=== PATIENT | female | born 1965 | race Caucasian/White ===

== ENCOUNTER 2023-11-20 04:03 | Observation (INO) | payer BC, SELFPAY ==
[2023-11-19 23:23] VITALS: BP 118/86
[2023-11-19 23:33] VITALS: BP 146/53
[2023-11-19 23:39] VITALS: BMI 17.6
--- NOTE | 2023-11-19 23:59 | ED.GENMED ---
History of Present Illness
<RACHAEL Briceno - Last Filed: 11/20/23 00:09>
General
Chief Complaint: Fall
Source: patient and family
Exam Limitations: none
Time Seen by Provider: 11/19/23 23:41
Nursing documentation reviewed up to this point in time: agreed with
Travel History
Have you had any contact with someone who has COVID-19?: No
Do you have any symptoms of coronavirus? Fever > 100 degrees, chills, cough, shortness of breath, sore throat, loss of taste or smell, muscle aches, or headache?: No
History of Present Illness
History of Present Illness:
patient is a 58 y/o female with PMH of multiple sclerosis and emphysema presenting after a fall. Patient states the fall occurred around 10pm. Patient states she collapsed on her legs and her family found her on the floor laying on her back. Patient
denies a head strike. Patient admits to vomiting once on Saturday and once on Saturday but not since the fall. Patient admits to increased diarrhea this week. Patient admits to increased allergies in the last week which she takes Zyrtec for. Patient
denies fever, chills, BARNES, SOB, CP, dizziness, visual changes, bone pain, palpitations. Patient denies being on a blood thinner. Patient admits to two glasses of alcohol for which the family says was more than two drinks. Patient admits to smoking a
half pack of cigarettes today. Family admits that patient has had 'increased metal status change and weakness when walking' due to unsteady gate. Patient uses a walker and cane. Patient was using a walker during her fall today.
Review of Systems
<RACHAEL Briceno - Last Filed: 11/20/23 00:09>
Review of Systems
Constitutional: Reports no symptoms
EENT: Reports runny nose
Respiratory: Reports no symptoms
Cardiac: Reports no symptoms
ABD/GI: Reports nausea, vomiting and diarrhea
: Reports no symptoms
Musculoskeletal: Reports no symptoms
Skin: Reports no symptoms
Neurological: Reports no symptoms
Endocrine: Reports no symptoms
Hematologic/Lymphatic: Reports no symptoms
Psychiatric: Reports no symptoms
Phy Exam
<RACHAEL Briceno - Last Filed: 11/20/23 00:09>
General Physical Exam
General Presentation: well appearing and no apparent distress
General Skin: warm and dry
General Habitus: normal
General Mental: alert
General Hydration: appears well hydrated
ENT Exam
ENT Exam: EOMI, pharynx normal, neck supple and normocephalic
Eye Exam
Eye Exam: PERRL, cornea clear and conjunctiva normal
Scleral Findings: icteric sclera: Bilateral (mild scleral icterus )
Cardiovascular Exam
Cardiovascular Exam: regular rate/rhythm, no edema, no murmur and normal peripheral pulses
Pulmonary Exam
Pulmonary Exam: lungs clear, no respiratory distress, no rales, no crackles, no rhonchi, no stridor, no wheezing and no cough
Gastrointestinal Exam
Gastrointestinal Exam: normal bowel sounds, non tender, soft, no organomegaly, no pulsatile mass and non distended
Neurological Exam
Neurological Exam: alert, oriented x3, no motor deficits and speech normal
Musculoskeletal Exam
Musculoskeletal Exam: full ROM and no edema
Skin Exam
Skin Exam: normal color, warm/dry, no rash and no petechia
Psychiatric Exam
Psychiatric Exam: normal mood/affect
Course
<ST JanakNM - Last Filed: 11/20/23 00:09>
Orders/Labs/Results
Orders:
Orders
11/19/23 23:54
Alcohol Urgent
Ammonia Urgent
Complete Blood Count/With Diff Urgent
Comprehensive Metabolic Panel Urgent
11/19/23 23:57
Add On- LAB Urgent
Comments:: blood in lab
Tests Added?: alcohol
11/20/23 00:09
Urinalysis Reflex To Culture Urgent
Date Specimen was Collected: 11/20/23
Time Specimen was Collected: 00:07
Urine Microscopic Reflex Cult Urgent
Urine Culture Urgent
ELIA Source: U
Specimen Description:
Date Specimen was Collected: 11/20/23
Time Specimen was Collected: 00:07
11/20/23 00:30
Chest [CR Chest - 2 Views ] Urgent
Comment:
Reason For Exam: cough, congestion, hx of emphysema
11/20/23 02:00
0.9% Sodium Chloride 1000 ml [Nss] 1,000 ml Mvi, Adult [Multivitamin] 10 ml Thiamine Injection 100 mg IV 250 mls/hr
Abnormal Lab Results
11/19/23 11/20/23
23:54 00:09
MCH 33.6 H pg
(27.0-31.0)
Plt Count 96 L 10^3/uL
(130-400)
Potassium 3.0 L mmol/L
(3.5-5.1)
Creatinine 0.4 L mg/dL
(0.6-1.0)
AST 89 H U/L
(14-36)
ALT 36 H U/L
(0-35)
Urine Ketones 1+ A
(Negative)
Ur Occult Blood Reflex 3+ A
(Negative)
Urine Bilirubin 1+ A
(Negative)
Urine Urobilinogen 2+ A
(Neg - 1+)
Leukocyte Esterase Rfl 2+ A
(Negative)
Urine Bacteria (Reflex) Many A
(Negative)
Urine Albumin (Reflex) 1+ A
(Neg - Trace)
11/19/23 23:54
11/19/23 23:54
Vital Signs
Initial and Last Documented VS:
Initial Vital Signs
Pulse Resp BP Pulse Ox
90 24 118/86 91
11/19/23 23:23 11/19/23 23:23 11/19/23 23:23 11/19/23 23:23
Last Documented Vital Signs
Pulse Resp BP Pulse Ox
91 17 135/68 90
11/20/23 01:15 11/20/23 01:15 11/20/23 01:07 11/20/23 01:15
<Danny Castro, DO - Last Filed: 11/20/23 02:02>
Orders/Labs/Results
Orders:
Orders
11/19/23 23:54
Alcohol Urgent
Ammonia Urgent
Complete Blood Count/With Diff Urgent
Comprehensive Metabolic Panel Urgent
11/19/23 23:57
Add On- LAB Urgent
Comments:: blood in lab
Tests Added?: alcohol
11/20/23 00:09
Urinalysis Reflex To Culture Urgent
Date Specimen was Collected: 11/20/23
Time Specimen was Collected: 00:07
Urine Microscopic Reflex Cult Urgent
Urine Culture Urgent
ELIA Source: U
Specimen Description:
Date Specimen was Collected: 11/20/23
Time Specimen was Collected: 00:07
11/20/23 00:30
Chest [CR Chest - 2 Views ] Urgent
Comment:
Reason For Exam: cough, congestion, hx of emphysema
11/20/23 02:00
0.9% Sodium Chloride 1000 ml [Nss] 1,000 ml Mvi, Adult [Multivitamin] 10 ml Thiamine Injection 100 mg IV 250 mls/hr
Abnormal Lab Results
11/19/23 11/20/23
23:54 00:09
MCH 33.6 H pg
(27.0-31.0)
Plt Count 96 L 10^3/uL
(130-400)
Potassium 3.0 L mmol/L
(3.5-5.1)
Creatinine 0.4 L mg/dL
(0.6-1.0)
AST 89 H U/L
(14-36)
ALT 36 H U/L
(0-35)
Urine Ketones 1+ A
(Negative)
Ur Occult Blood Reflex 3+ A
(Negative)
Urine Bilirubin 1+ A
(Negative)
Urine Urobilinogen 2+ A
(Neg - 1+)
Leukocyte Esterase Rfl 2+ A
(Negative)
Urine Bacteria (Reflex) Many A
(Negative)
Urine Albumin (Reflex) 1+ A
(Neg - Trace)
11/19/23 23:54
11/19/23 23:54
Vital Signs
Initial and Last Documented VS:
Initial Vital Signs
Pulse Resp BP Pulse Ox
90 24 118/86 91
11/19/23 23:23 11/19/23 23:23 11/19/23 23:23 11/19/23 23:23
Last Documented Vital Signs
Pulse Resp BP Pulse Ox
91 17 135/68 90
11/20/23 01:15 11/20/23 01:15 11/20/23 01:07 11/20/23 01:15
<RACHAEL Briceno - Last Filed: 11/20/23 00:09>
MDM/Problems Addressed
Differential Diagnosis Includes:
fall complication
multiple sclerosis
MDM/Problems Addressed:
fall
<Danny Catsro DO - Last Filed: 11/20/23 02:02>
MDM/Problems Addressed
Differential Diagnosis Includes:
fall complication
multiple sclerosis alcohol intoxication
<RACHAEL Briceno - Last Filed: 11/20/23 00:09>
*Critical Care Note
Total Time (30-74mins, 75-104mins- exclusive of procedures): Not Applicable
<Danny Castro DO - Last Filed: 11/20/23 02:02>
*Radiology
Radiology exam reviewed: preliminary read by ED provider
*Pulse Oximetry
Patient hypoxic: no
*Critical Care Note
Total Time (30-74mins, 75-104mins- exclusive of procedures): Not Applicable
Data Reviewed
Review of Other/Old Records Reveals: Labs, Records and Radiology Studies
Source: patient, spouse and family
<Danny Castro DO - Last Filed: 11/20/23 02:02>
Patient Management
Social determinants of health affecting care: Living situation, Substance abuse (Heavy alcohol abuse) and Strong social support
ED Attending Note
<RACHAEL Briceno - Last Filed: 11/20/23 00:09>
-
Portions of this chart may have been created with voice recognition software.� Occasional wrong word or��sound alike� substitutions may have occurred due to the inherent limitations of voice recognition software.
<Danny Castro DO - Last Filed: 11/20/23 02:02>
ED Attending Note
Patient seen and examined by attending physician: Yes
I performed the substantive portion of visit, reviewed & personally made and approve the management plan that is documented in note by myself or IBRAHIMA.: Yes
ED Attending Note:
This a pleasant 58-year-old female presents with weakness after a fall. She does have a history of multiple sclerosis and emphysema. Around 10 PM this evening she states that her legs gave out and her family found her on the floor. Patient
reports not having a head strike. Patient has had increased diarrhea throughout the week. Patient is a smoker and drinks alcohol heavily. She has had an unsteady gait. She does use a walker and a cane but sometimes is noncompliant. Patient was
using a walker today. She is accompanied by her significant other and daughter. Patient was seen in conjunction with the PA student. I have reviewed and agree with the history and treatment plan presented. On my independent physical exam,
patient is awake, alert, and oriented x3. Skin is warm and dry. Lungs have generalized wheezing present. Heart is regular rate and rhythm.
Discharge Plan
Departure
Patient Disposition: Admit
Date of Disposition: 11/20/23
Time of Disposition: 02:01
Admit to: Telemetry
Admit to doctor: Hospitalist
Presentation/result/management discussed w/ accepting MD/DO: Hospitalist
Condition: Fair
Discharge Problem:
Weakness, Alcohol intoxication, Falls frequently, Acute hypokalemia
Prescriptions:
No Action
multivitamin Tablet
1 tab PO DAILY
cetirizine [Zyrtec] 10 mg Tablet
10 mg PO DAILY
glatiramer 40 mg/mL Syringe
40 mg SC MOWEFR
Referrals:
Ronald Carmen I., DO [Family Provider] -
Interventions
Interventions:
*Risk Screen - Suicide Last Done: 11/19/23 23:23
*General Assessment Last Done: 11/19/23 23:42
*Neglect/Abuse Screening Last Done: 11/19/23 23:23
ED- Fall Risk Assessment Last Done: 11/20/23 01:00
*ED COVID-19 Vaccine History Last Done: 11/19/23 23:42
ED- Cardiac Assessment Last Done: 11/20/23 01:00
ED-Musculoskeletal Assessment Last Done: 11/20/23 01:00
ED- Neurological Assessment Last Done: 11/20/23 01:00
ED- Pulmonary Assessment Last Done: 11/20/23 01:00
ED-Skin Assessment Last Done: 11/20/23 01:00
Discharge Date and Time
Print Language: KOREAN
[2023-11-20] VITALS (15 sets, daily range): BP systolic 109–168; BP diastolic 56–118; PULSE 85
[2023-11-20 00:03] LABS: % Basophils 0.4 % (0-2); % Eosinophils 0.3 % (0-6); % Immature Granulocytes 0.4 % (0-0.5); % Monocytes 7.4 % (1.7-9.3); % Neutrophils 67.5 % (42.2-75.2); Absolute Lymphocytes 1.8 10^3/uL (1.2-3.4); Absolute Monocytes 0.6 10^3/uL (0.1-0.6); Absolute Neutrophils 5.2 10^3/uL (1.4-6.5); Hematocrit 40.8 % (37.0-47.0); Hemoglobin 14.6 g/dL (12.0-16.0); Mean Corp Hgb Conc. 35.8 g/dL (33.0-37.0); Mean Corpuscular Hgb 33.6 pg (27.0-31.0); Mean Corpuscular Volume 93.8 fL (81.0-99.0); Nucleated Red Blood Cells % 0 %; Red Blood Cell Count 4.35 10^6/uL (4.20-5.40); Red Cell Dist. Width 12.7 % (11.5-14.5); White Blood Cell Count 7.7 10^3/uL (4.8-10.8)
[2023-11-20 00:14] LABS: Ammonia 16 umol/L (9-30)
[2023-11-20 00:15] LABS: ALT (SGPT) 36 U/L (0-35); AST (SGOT) 89 U/L (14-36); Albumin 4.2 g/dl (3.5-5.0); Alkaline Phosphatase 125 U/L (38-126); Blood Urea Nitrogen 12 mg/dl (7-17); Calcium 8.8 mg/dl (8.4-10.2); Carbon Dioxide 25 mmol/L (22-30); Chloride 100 mmol/L (98-107); Estimated Creatinine Clearance 79 ml/min; Glucose 87 mg/dl (70-99); Sodium 138 mmol/L (135-145); Total Protein 7.1 g/dl (6.3-8.2); eGFR > 60.00
[2023-11-20 00:25] LABS: Urine Albumin 1+ (Neg - Trace); Urine Bilirubin 1+ (Negative); Urine Color Amber; Urine Glucose Negative (Negative); Urine Ketone 1+ (Negative); Urine Leukocyte 2+ (Negative); Urine Nitrite Negative (Negative); Urine Occult Blood 3+ (Negative); Urine Urobilinogen 2+ (Neg - 1+)
[2023-11-20 00:26] LABS: Urine Character Cloudy (Clear)
[2023-11-20 00:32] LABS: Alcohol 375 mg/dl
[2023-11-20 00:49] LABS: Platelet Count 96 10^3/uL (130-400)
[2023-11-20 00:50] LABS: Mean Platelet Volume 10.4 fL (7.4-10.4)
[2023-11-20 01:09] LABS: Urine Triple Phosphate Crystal Seen
[2023-11-20 01:10] LABS: Urine Bacteria Many (Negative); Urine Squamous Cell >30 /LPF (Few)
[2023-11-20 01:11] LABS: Urine Amorphous Seen; Urine Mucus Many
[2023-11-20] MEDS: MULTIVITAMIN 1011 MG IV (03:04)
[2023-11-20] MEDS: MULTIVITAMIN 1011 ML IV (03:04)
--- NOTE | 2023-11-20 03:04 | HPS.HSE ---
Addendum entered and electronically signed by Chema Cobos MD 11/20/23 03:36:
Correction;
Level of care: Obs <del>MS</del> TLM
Original Note:
Family Physician
-
Family Physician: Ronald Carmen
Chief Complaint
-
fall , weakness , unsteady gait
History of Present Illness
58F pw fall and unsteady gait
Significant PMHx of ETOH use disorder, Multple sclerosis , chronic gait dysfunction require walker , current smoker, COPD/ emphysema,
Seen at ER for evaluation of Fall and unsteady gait
Per patient:
she collapse due to leg weakness. Denied head strike. Not on blood thinner.
he was found on the brayden by family.
Per family she was drinking more than she reports.
ETOH level is 75 on arrival
patient reports non billous vomiting once on Suday and also loose BM.
Per Family:
The patient has had 'increased metal status change and weakness when walking' due to unsteady gate.
ROS
Denies fever, chills, BARNES, SOB, CP, dizziness, visual changes, bone pain, palpitations
Medical History
Past Medical History
Past Medical History: Reports Other
Additional Past Medical History:
ETOH use disorder
Multiple sclerosis
chronic gait dysfunction require walker
Current smoker
COPD/ emphysema,
Past Surgical History: Reports Other
Social History
Tobacco: Smoker
Alcohol: Daily
Family History
Family History: Not pertinent
Allergies / Home Medications
Allergies reflects when Allergies were last updated in [employer].
Home Medications with original date entered in [employer]
Allergy/Medication List:
Allergies
Allergy/AdvReac Type Severity Reaction Status Date / Time
No Known Allergies Allergy Verified 11/19/23 23:26
Home Medications
cetirizine 10 mg tablet (Zyrtec) 10 mg PO DAILY 11/19/23
glatiramer 40 mg/mL subcutaneous syringe 40 mg SC MOWEFR 11/19/23
multivitamin 1 tab PO DAILY 11/19/23
Review of Systems
-
Constitutional: Reports No Symptoms
EENT: Reports No Symptoms
Respiratory: Reports No Symptoms
Cardiac: Reports No Symptoms
Abdomen/GI: Reports Nausea, Vomiting and Diarrhea
: Reports No Symptoms
Musculoskeletal: Reports No Symptoms
Skin: Reports No Symptoms
Neurological: Reports Weakness
Endocrine: Reports No Symptoms
Hematologic/Lymphatic: Reports No Symptoms
Psych: Reports No Symptoms
Physical Exam
Vital Signs
Vital Signs
Temp Pulse Resp BP Pulse Ox
98.0 F 94 16 145/70 92
11/20/23 02:05 11/20/23 02:05 11/20/23 02:05 11/20/23 02:05 11/20/23 02:05
Physical Exam
General: No Apparent Distress
HEENT: NormoCephalic, Anicteric and Moist mucous membranes
Respiratory: Clear
Cardiac: S1/S2 and Regular Rhythm
Breast: Deferred by me
GI: Soft, Non Tender, Non Distended and Normal Bowel Sounds
Rectal: Deferred by Provider
Genito-urinary: Deferred by me
Musculoskeletal: No Edema
Skin: Warm and Dry
Neuro: AO x 3
Psych: Calm
Laboratory Results
-
11/19/23 23:54
11/19/23 23:54
Laboratory Results
Total Bilirubin 1.0 mg/dl (0.2-1.3) 11/19/23 23:54
AST 89 U/L (14-36) H 11/19/23 23:54
ALT 36 U/L (0-35) H 11/19/23 23:54
Alkaline Phosphatase 125 U/L (38-126) 11/19/23 23:54
Data Reviewed
-
Diagnostic Radiology: Image Personally Visualized and interpreted
Lab Data: Labs Reviewed by me
Impression/Plan
-
Reviewed VS: afebrile HR 90 -100s RR 16 POx 88- low 90s on RA
Data
nl CBC
K 3
nl Cr
AST 89
ALT 36
UA not remarkable for UTI
CXR seem chronic emphysematous/COPD changes with flattening of dipharagm hages in my view
ETOH 375
ASSESSMENT & PLAN
Fall likely due to acute ETOH intoxication with underlying chronic gait dysfunction & non compliance with walker
Hypokalemia due to vomiting and diarrheal GI loss +/_ starvation ketosis
Recent vomiting and diarrhea suspected acute viral GE
Spontaneously resolved diarrhea
- KCL PO 40 x1 at ER
- IVF after Banana bag intiaited by ER
- fall precaution
- PT/OT
HX Multiple sclerosis
chronic gait dysfunction & non compliance with walker
P Neurologist; Dr Sainz
- stable
- on Glatiramer 40 mg SC on MWF
HX ETOH use disorder
Denied prior HX severe ETOH WD syndrome
- Given ETOH level of 375, too soon for acute ETOH WDS
- CIWA protocol
Marginal hypoxia due to emphysema/ COPD
Current smoker
No gross PNA or CHF on CXR by my view
- O2@ as needed if POx < 89
DVT Px: LMWH
Code: Full
Obs MS
[2023-11-20] MEDS: KCL ELIXIR 40 MEQ PO (03:09)
[2023-11-20 07:01] LABS: Blood Urea Nitrogen 7 mg/dl (7-17); Calcium 8.2 mg/dl (8.4-10.2); Carbon Dioxide 24 mmol/L (22-30); Chloride 103 mmol/L (98-107); Estimated Creatinine Clearance 79 ml/min; GGTP 107 U/L (12-43); Glucose 80 mg/dl (70-99); Hematocrit 37.4 % (37.0-47.0); Hemoglobin 13.3 g/dL (12.0-16.0); Magnesium 1.6 mg/dl (1.6-2.3); Mean Corp Hgb Conc. 35.6 g/dL (33.0-37.0); Mean Corpuscular Volume 95.7 fL (81.0-99.0); Mean Platelet Volume 10.9 fL (7.4-10.4); Platelet Count 84 10^3/uL (130-400); Potassium 3.5 mmol/L (3.5-5.1); Red Blood Cell Count 3.91 10^6/uL (4.20-5.40); Red Cell Dist. Width 12.9 % (11.5-14.5); Sodium 136 mmol/L (135-145); White Blood Cell Count 6.4 10^3/uL (4.8-10.8); eGFR > 60.00
[2023-11-20 07:07] LABS: B-Hydroxybutyrate 1.56 mmol/L (0.02-0.27)
[2023-11-20] MEDS: FOLVITE 1 MG PO (07:29)
[2023-11-20 07:30] LABS: TSH 0.38 uIU/ml (0.47-4.68)
[2023-11-20] MEDS: NSS 1000 IV (07:30)
[2023-11-20] MEDS: THIAMINE INJECTION 200 MG IV (07:30)
[2023-11-20] MEDS: APRESOLINE 10 MG IV (12:29)
--- NOTE | 2023-11-20 13:18 | CM ---
Patient seen at bedside. Patient states that she lives with her in a 2 story home. Patient PCP is Dr. Delatorre and she uses the [facility] specialty pharmacy or the [facility] in [place]. Patient has not had any VN or past SNF needs. CM provided
OBS form patient reviewed and to sign after review with her . Consult for drug and alcohol patient uncertain if she needs any resources. CM will continue to follow for discharge planning needs.
Plan; home with VN vs home with no needs/ watch for request for [facility]
--- NOTE | 2023-11-20 13:59 | W.PN.UPDATE ---
Update Note
Progress Note Update
Repeat BMP showing normal potassium level
Patient requesting to be discharged
Physical therapy evaluated patient, patient will get around with walker which is patient's baseline
Provided 1 dose of IV hydralazine for systolic blood pressure 160
Stop further IV fluid
Discussed with patient need of alcohol abstinence as patient have multiple sclerosis will aggravate weakness and fall problem.
discussed with case management as patient would require resources for alcohol rehab.
Patient to be discharged home
--- NOTE | 2023-11-22 07:29 | W.DCSUMMARY ---
Discharge Summary
Discharge Data
Date of Admission: 11/20/23
Date of Discharge: 11/20/23
-
Pending Results: No
Hospital Course
Discharging Physician : Dr Ciaran Spicer
Disposition : Home
Primary care physician : Dr Ronald Carmen
Principal Discharge diagnosis :
Generalized weakness and fall
Alcohol intoxication
Chronic Discharge diagnosis :
History of multiple sclerosis
Alcohol use disorder
Chronic obstructive pulmonary disease
Tobacco use disorder
Hospital Course :
Patient is a 58-year-old female with above-mentioned past medical history came to ER after having a mechanical fall at home. Patient had complaint of leg weakness without any loss of consciousness. Patient with history of multiple sclerosis and on
glatiramer therapy. Patient drug level of 375 in ER and was felt to causing patient to fall due to alcohol intoxication. Patient had minor hypokalemia which was replaced. Following day patient was evaluated by physical therapy and was appropriate
for home with home health care. Discussed with patient that patient needs to follow strict alcohol abstinence at this will have more difficulty with strength weakness of continue to drink alcohol. Patient understands this and outpatient resources
for help with alcohol use disorder has been provided to patient.
Important imaging findings :
None
Procedure findings :
None
Discharge Plan
-
Patient Disposition: Home (Routine Discharge)
Discharge Diagnosis/Procedures: Multiple sclerosis and fall, alcohol use disorder
Condition: Fair
Diet: Regular
Activity: As tolerated
Driving Restrictions: No driving
Bathing Restrictions: OK to Shower
Activity Restrictions/Additional Instructions:
Need to follow strict alcohol abstinence, You will have increased risk of fall and fall related problems due to ongoing alcohol use.
Referrals:
Ronald Carmen I., DO [Family Provider] - in one week
Prescriptions:
Continued
multivitamin Tablet
1 tab PO HS
cetirizine [Zyrtec] 10 mg Tablet
10 mg PO DAILY PRN (Reason: allergies)
glatiramer 40 mg/mL Syringe
40 mg SC MOWEFR@2200
loperamide 2 mg Capsule
2 mg PO DAILYPRN PRN (Reason: diarrhea)
cholecalciferol (vitamin D3) 50 mcg (2,000 unit) Tablet
50 mcg PO HS
Discharge Orders:
Discharge Patient (As Directed); Ordered 11/20/23
Ordered By: Ciaran Spicer
Discharge Date and Time
Discharge Date/Time: 11/20/23 13:01
Print Language: INDONESIAN
== END 2023-11-20 13:01 | disposition home or self-care (01) ==
LOC: ED 04:03
PROVIDERS: ADMITTING PHYSICIAN Internal Medicine; ATTENDING PHYSICIAN Hospitalist; EMERGENCY PHYSICIAN Student in an Organized Health Care Education/Training Program; FAMILY PHYSICIAN Internal Medicine
DX: R53.1 Weakness (principal); R11.2 Nausea with vomiting, unspecified; G35 Multiple sclerosis; J43.9 Emphysema, unspecified; R19.7 Diarrhea, unspecified; F17.210 Nicotine dependence, cigarettes, uncomplicated; R09.02 Hypoxemia; R29.6 Repeated falls; E87.6 Hypokalemia; F10.129 Alcohol abuse with intoxication, unspecified; R09.81 Nasal congestion; W01.0XXA Fall on same level from slipping, tripping and stumbling without subsequent striking against object, initial encounter; Y93.9 Activity, unspecified; Y92.9 Unspecified place or not applicable; Y90.8 Blood alcohol level of 240 mg/100 ml or more; Z91.199 Patient's noncompliance with other medical treatment and regimen due to unspecified reason
CPT/HCPCS: 71046; 80048; 80053; 81003; 81015; 82010; 82077; 82140; 82977; 83735; 84443; 85025; 85027; 87086; 97162; 99285; G0378

== ENCOUNTER 2023-11-25 07:32 | Emergency (ER) | payer BC, SELFPAY ==
[2023-11-25 07:34] VITALS: BP 138/104
[2023-11-25 07:57] VITALS: BMI 17.6
[2023-11-25 08:00] VITALS: BP 161/77
[2023-11-25 08:14] LABS: % Basophils 0.3 % (0-2); % Eosinophils 0.7 % (0-6); % Immature Granulocytes 0.3 % (0-0.5); % Lymphocytes 24.5 % (20.5-51.1); % Monocytes 12.9 % (1.7-9.3); % Neutrophils 61.3 % (42.2-75.2); Absolute Eosinophils 0.1 10^3/uL (0-0.7); Absolute Lymphocytes 1.7 10^3/uL (1.2-3.4); Absolute Monocytes 0.9 10^3/uL (0.1-0.6); Absolute Neutrophils 4.3 10^3/uL (1.4-6.5); Hematocrit 41.2 % (37.0-47.0); Hemoglobin 14.5 g/dL (12.0-16.0); Mean Corp Hgb Conc. 35.2 g/dL (33.0-37.0); Mean Corpuscular Hgb 33.6 pg (27.0-31.0); Mean Corpuscular Volume 95.4 fL (81.0-99.0); Mean Platelet Volume 11.3 fL (7.4-10.4); Nucleated Red Blood Cells % 0 %; Platelet Count 141 10^3/uL (130-400); Red Blood Cell Count 4.32 10^6/uL (4.20-5.40); Red Cell Dist. Width 11.9 % (11.5-14.5); White Blood Cell Count 7.1 10^3/uL (4.8-10.8)
[2023-11-25 08:17] LABS: Urine Albumin Trace (Neg - Trace); Urine Bilirubin 1+ (Negative); Urine Character Clear (Clear); Urine Color Yellow; Urine Glucose Negative (Negative); Urine Ketone Negative (Negative); Urine Leukocyte 2+ (Negative); Urine Nitrite Positive (Negative); Urine Occult Blood 2+ (Negative); Urine Specific Gravity 1.005 (<1.030); Urine Urobilinogen 3+ (Neg - 1+)
[2023-11-25 08:29] LABS: ALT (SGPT) 30 U/L (0-35); AST (SGOT) 46 U/L (14-36); Albumin 4.2 g/dl (3.5-5.0); Alkaline Phosphatase 95 U/L (38-126); Blood Urea Nitrogen 5 mg/dl (7-17); Calcium 9.3 mg/dl (8.4-10.2); Carbon Dioxide 29 mmol/L (22-30); Chloride 96 mmol/L (98-107); Estimated Creatinine Clearance 79 ml/min; Glucose 117 mg/dl (70-99); Lipase 91 U/L (23-300); Potassium 3.1 mmol/L (3.5-5.1); Sodium 133 mmol/L (135-145); Total Bilirubin 1.4 mg/dl (0.2-1.3); Total Protein 7.2 g/dl (6.3-8.2); eGFR > 60.00
[2023-11-25 08:31] LABS: Alcohol None Detected
[2023-11-25 08:39] LABS: Urine Bacteria Many (Negative); Urine Red Blood Cell 0-2 /HPF (0-2)
[2023-11-25 09:00] VITALS: BP 151/96
[2023-11-25] MEDS: NSS 500 IV (09:05)
[2023-11-25 09:14] LABS: Magnesium 1.3 mg/dl (1.6-2.3)
[2023-11-25 09:33] LABS: Ammonia < 9 umol/L (9-30)
--- NOTE | 2023-11-25 09:43 | ED.GENMED ---
History of Present Illness
General
Chief Complaint: Change in Mental Status
Source: patient
Exam Limitations: none
Time Seen by Provider: 11/25/23 08:04
Nursing documentation reviewed up to this point in time: agreed with
Travel History
Have you had any contact with someone who has COVID-19?: No
Do you have any symptoms of coronavirus? Fever > 100 degrees, chills, cough, shortness of breath, sore throat, loss of taste or smell, muscle aches, or headache?: No
History of Present Illness
History of Present Illness:
Patient with history of multiple sclerosis, currently on maintenance therapy, discharged from the hospital 3 days ago, after she was treated for acute hypokalemia along with alcohol intoxication, presents to ED secondary to continual/worsening
'confusion' since being discharged home. Denies fever or chills. Denies headache. Denies dizziness. Denies nausea, vomiting, or diarrhea. Denies drinking alcohol. Denies coughing. Denies rash. Denies blurred vision. Denies loss of sensation
or weakness. Patient states that she had some confusion when she left the hospital, but has gotten worse since she has been home.
Review of Systems
Review of Systems
Allergies reviewed?: Yes
All Other Systems: ROS reviewed and negative except as documented in HPI and ROS
Constitutional: Reports no symptoms; Denies fever or chills
EENT: Reports no symptoms
Respiratory: Reports no symptoms
Cardiac: Reports no symptoms
ABD/GI: Reports no symptoms
: Reports no symptoms
Musculoskeletal: Reports no symptoms
Skin: Reports no symptoms
Neurological: Reports other (confusion)
Phy Exam
Physical Exam
Physical Exam:
Physical Exam
General: no apparent distress, not acutely ill. afebrile
Head: nc/at. eomi
Neck: supple. no meningeal signs.
Heart: s1/s2 regular rate and rhythm, no murmur. equal radial pulses.
Lungs: no acute respiratory distress. clear bilaterally
Abdomen: normal bowel sounds. not tender.
Neuro: alert and oriented. no focal neurological deficits
Skin: no rash
Psychiatric: well kept. interactive and cooperative
Extremities: no edema. no calf tenderness.
Course
Orders/Labs/Results
Orders:
Orders
11/25/23 08:05
Alcohol Urgent
CMP [Comprehensive Metabolic Panel] Urgent
Complete Blood Count/With Diff Urgent
Lipase Urgent
Magnesium Urgent
Comment: MAG ADDED ON BY FLOOR 8:50AM 11-25-23
Urinalysis Reflex To Culture Urgent
Date Specimen was Collected: 11/25/23
Time Specimen was Collected: 07:45
Urine Microscopic Reflex Cult Urgent
Urine Culture Urgent
ELIA Source: U
Specimen Description:
Date Specimen was Collected: 11/25/23
Time Specimen was Collected: 07:45
11/25/23 08:53
Add On- LAB Urgent
Tests Added?: magnesium
0.9% Sodium Chloride 500 ml [Nss] 500 ml IV BOLUS
11/25/23 09:13
Ammonia Urgent
11/25/23 09:26
Cetirizine HCl [Zyrtec] 10 mg PO NOW STA
11/25/23 09:33
Potassium Chloride [KCl] 40 meq PO NOW STA
11/25/23 09:35
CefTRIAXone [Rocephin] 1,000 mg IV NOW STA
11/25/23 09:40
Thiamine Injection 100 mg IV NOW STA
11/25/23 09:58
Magnesium Sulfate 1 grams 0.9% Sodium Chloride 100 ml [Nss] 100 ml IV NOW
Abnormal Lab Results
11/25/23 11/25/23
08:05 09:13
MCH 33.6 H pg
(27.0-31.0)
MPV 11.3 H fL
(7.4-10.4)
Absolute Monos (auto) 0.9 H 10^3/uL
(0.1-0.6)
Monocytes % 12.9 H %
(1.7-9.3)
Sodium 133 L mmol/L
(135-145)
Potassium 3.1 L mmol/L
(3.5-5.1)
Chloride 96 L mmol/L
(98-107)
BUN 5 L mg/dl
(7-17)
Creatinine 0.4 L mg/dL
(0.6-1.0)
Glucose 117 H mg/dl
(70-99)
Magnesium 1.3 L mg/dl
(1.6-2.3)
Total Bilirubin 1.4 H mg/dl
(0.2-1.3)
AST 46 H U/L
(14-36)
Ammonia < 9 L umol/L
(9-30)
Ur Occult Blood Reflex 2+ A
(Negative)
Urine Nitrite (Reflex) Positive A
(Negative)
Urine Bilirubin 1+ A
(Negative)
Urine Urobilinogen 3+ A
(Neg - 1+)
Leukocyte Esterase Rfl 2+ A
(Negative)
Urine WBC (Reflex) 11-15 A /HPF
(0-5)
Urine Bacteria (Reflex) Many A
(Negative)
11/25/23 08:05
11/25/23 08:05
Vital Signs
Initial and Last Documented VS:
Initial Vital Signs
Temp Pulse Resp BP Pulse Ox
98.2 F 98 18 138/104 97
11/25/23 07:34 11/25/23 07:34 11/25/23 07:34 11/25/23 07:34 11/25/23 07:34
Last Documented Vital Signs
Temp Pulse Resp BP Pulse Ox
98.2 F 78 25 126/73 96
11/25/23 07:34 11/25/23 11:30 11/25/23 11:30 11/25/23 11:00 11/25/23 10:00
MDM/Problems Addressed
MDM/Problems Addressed:
Blood work reviewed and discussed with patient, including hyponatremia and hypokalemia, likely secondary to dehydration along with nutritional deficiency. In addition, urinalysis noted and discussed with patient. IV fluids given along with
electrolyte repletion, as well as IV antibiotics. Patient reports improvement after treatment. Patient otherwise is afebrile, hemodynamically stable, and neurologically intact, at time of discharge, to the care of her family.
Patient will be started on Omnicef as an outpatient, along with recommendation to continue hydration as well as dietary supplementation along with [id number] vitamin tablets. Advised PCP follow-up next week, along with repeat blood work.
Advised to return to ED with worsening symptoms.
*Critical Care Note
Total Time (30-74mins, 75-104mins- exclusive of procedures): Not Applicable
ED Attending Note
-
Portions of this chart may have been created with voice recognition software.� Occasional wrong word or��sound alike� substitutions may have occurred due to the inherent limitations of voice recognition software.
Discharge Plan
Departure
Patient Disposition: Home (Routine Discharge)
Date of Disposition: 11/25/23
Time of Disposition: 12:15
Patient with high blood pressure during this ER visit?: Yes
Condition: Good
Discharge Problem:
Acute hypokalemia, Dehydration, UTI (urinary tract infection)
Instructions: Hypokalemia (DC), Urinary Tract Infection, Adult (DC), High Potassium Diet
Prescriptions:
New
cefdinir 300 mg capsule
300 mg PO BID Qty: 12 0RF
No Action
multivitamin Tablet
1 tab PO QPM
cetirizine [Zyrtec] 10 mg Tablet
10 mg PO DAILY
glatiramer 40 mg/mL Syringe
40 mg SC MOWEFR@2200
[facility] Comments:
[facility]
loperamide 2 mg Capsule
2 mg PO DAILYPRN PRN (Reason: diarrhea)
cholecalciferol (vitamin D3) 50 mcg (2,000 unit) Tablet
50 mcg PO QPM
Referrals:
Danny Cha CRNP [Family Provider] -
Activity Restrictions/Additional Instructions:
As discussed, please follow-up with your primary care physician next week for reevaluation, including repeat blood work. Your prescription has been sent electronically to [facility] in [place].
Interventions
Interventions:
*Risk Screen - Suicide Last Done: 11/25/23 07:57
*General Assessment Last Done: 11/25/23 07:58
*Neglect/Abuse Screening Last Done: 11/25/23 07:57
ED- Fall Risk Assessment Last Done: 11/25/23 07:59
*ED COVID-19 Vaccine History Last Done: 11/25/23 07:34
*Nursing Disposition Last Done: 11/25/23 12:30
ED- Pulmonary Assessment Last Done: 11/25/23 08:02
ED- Neurological Assessment Last Done: 11/25/23 08:01
ED- Cardiac Assessment Last Done: 11/25/23 08:02
Discharge Date and Time
Print Language: EGYPTIAN
[2023-11-25] MEDS: ZYRTEC 10 MG PO (09:46)
[2023-11-25] MEDS: KCL 40 MEQ PO (09:49)
[2023-11-25] MEDS: THIAMINE INJECTION 100 MG IV (09:53)
[2023-11-25] MEDS: ROCEPHIN 1000 MG IV (09:57)
[2023-11-25 10:00] VITALS: BP 157/87
[2023-11-25] MEDS: MAGNESIUM SULFATE 102 GRAMS IV (10:20)
[2023-11-25 11:00] VITALS: BP 126/73
== END 2023-11-25 12:30 | disposition home or self-care (01) ==
LOC: EMR 07:32
PROVIDERS: Emergency Medicine; EMERGENCY PHYSICIAN Emergency Medicine; FAMILY PHYSICIAN Nurse Practitioner Family
DX: E87.6 Hypokalemia (principal); E86.0 Dehydration; N39.0 Urinary tract infection, site not specified; G35 Multiple sclerosis
CPT/HCPCS: 99283; 96365; 96375; 80053; 81003; 81015; 82077; 82140; 83690; 83735; 85025; 87086

== ENCOUNTER → 2023-12-04 07:47 | Outpatient (REF) | payer BC, SELFPAY ==
[2023-12-04 09:34] LABS: % Basophils 0.3 % (0-2); % Eosinophils 1.4 % (0-6); % Immature Granulocytes 0.2 % (0-0.5); % Lymphocytes 32.1 % (20.5-51.1); % Monocytes 8.3 % (1.7-9.3); % Neutrophils 57.7 % (42.2-75.2); Absolute Eosinophils 0.1 10^3/uL (0-0.7); Absolute Lymphocytes 1.9 10^3/uL (1.2-3.4); Absolute Monocytes 0.5 10^3/uL (0.1-0.6); Absolute Neutrophils 3.4 10^3/uL (1.4-6.5); Hematocrit 39.6 % (37.0-47.0); Mean Corp Hgb Conc. 32.8 g/dL (33.0-37.0); Mean Corpuscular Hgb 33.7 pg (27.0-31.0); Mean Corpuscular Volume 102.6 fL (81.0-99.0); Mean Platelet Volume 10.4 fL (7.4-10.4); Nucleated Red Blood Cells % 0 %; Platelet Count 332 10^3/uL (130-400); Red Blood Cell Count 3.86 10^6/uL (4.20-5.40); Red Cell Dist. Width 12.1 % (11.5-14.5); White Blood Cell Count 5.9 10^3/uL (4.8-10.8)
[2023-12-04 10:12] LABS: ALT (SGPT) 19 U/L (0-35); AST (SGOT) 25 U/L (14-36); Alkaline Phosphatase 79 U/L (38-126); Blood Urea Nitrogen 8 mg/dl (7-17); Calcium 9.7 mg/dl (8.4-10.2); Carbon Dioxide 28 mmol/L (22-30); Chloride 104 mmol/L (98-107); Glucose 99 mg/dl (70-99); Sodium 137 mmol/L (135-145); Total Bilirubin 0.5 mg/dl (0.2-1.3); Total Protein 6.7 g/dl (6.3-8.2); eGFR > 60.00
== END ==
LOC: REG 07:47
PROVIDERS: ATTENDING PHYSICIAN Nurse Practitioner Family
DX: G35 Multiple sclerosis (principal); E87.6 Hypokalemia
CPT/HCPCS: 36415; 80053; 85025

== ENCOUNTER 2023-12-28 10:30 | Emergency (ER) | payer BC, SELFPAY ==
[2023-12-28 10:48] VITALS: BP 117/60
--- NOTE | 2023-12-28 11:39 | ED.GENMED ---
History of Present Illness
General
Chief Complaint: Change in Mental Status
Source: patient
Time Seen by Provider: 12/28/23 11:21
Travel History
Have you had any contact with someone who has COVID-19?: No
Do you have any symptoms of coronavirus? Fever > 100 degrees, chills, cough, shortness of breath, sore throat, loss of taste or smell, muscle aches, or headache?: No
History of Present Illness
History of Present Illness:
58-year-old female presents to the emergency room for evaluation of 'not being herself today'. 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 The nurses felt like she was just not herself today. Patient admits to feeling fatigue
and having difficulty concentrating. She denies any fever, chills, cough, dysuria or frequency. She stopped consuming alcohol about 6 weeks ago because she 'had to'. She has recently received her medical marijuana certificate and has been using
Gummies occasionally though the last time she recalls taking 1 is 2 days ago. She denies any change in her prescription medications. She does take an injection for multiple sclerosis. She feels her ability to ambulate has not changed. She
typically uses a cane or a walker. She denies any headache.
Phy Exam
Physical Exam
Physical Exam:
General: Awake, Alert, Oriented X3. Appears stated age and chronically ill
Vitals: unremarkable
Head: Atraumatic
Eyes: Pupils equal, EOMI
Throat: Airway intact, no exudates
Neck: Trachea midline
Lungs: Clear and equal b/l
Heart: Regular rate, no murmurs
Abd: Soft, Nontender, No pulsatile mass
Neuro: Cranial nerves intact, muscle strength equal bilaterally
Skin: Warm, dry, no rash
Extremities: pulses equal b/l, no edema
Course
Orders/Labs/Results
Orders:
Orders
12/28/23 11:37
0.9% Sodium Chloride 500 ml [Nss] 500 ml IV BOLUS
12/28/23 11:39
CT Head W/o Iv Contrast Urgent
Comment:
Reason For Exam: intermittent confusion
12/28/23 12:04
COVID-19 Antigen Urgent
Source: Nasal Swab
Complete Blood Count/With Diff Urgent
Comprehensive Metabolic Panel Urgent
Magnesium Urgent
TSH Reflex To Free T4 Urgent
12/28/23 15:18
Urinalysis Reflex To Culture Urgent
Date Specimen was Collected: 12/28/23
Time Specimen was Collected: 15:15
Urine Microscopic Reflex Cult Urgent
Abnormal Lab Results
12/28/23 12/28/23
12:04 15:18
RBC 3.85 L 10^6/uL
(4.20-5.40)
Hct 36.5 L %
(37.0-47.0)
MCH 32.5 H pg
(27.0-31.0)
Neutrophils % 40.6 L %
(42.2-75.2)
Lymphocytes % 52.7 H %
(20.5-51.1)
Chloride 110 H mmol/L
(98-107)
Creatinine 0.4 L mg/dL
(0.6-1.0)
Glucose 111 H mg/dl
(70-99)
Ur Occult Blood Reflex Trace A
(Negative)
Urine RBC 3-6 A /HPF
(0-2)
Urine Bacteria (Reflex) Few A
(Negative)
12/28/23 12:04
12/28/23 12:04
Vital Signs
Initial and Last Documented VS:
Initial Vital Signs
Temp Pulse Resp BP Pulse Ox
98.2 F 74 16 117/60 97
12/28/23 10:48 12/28/23 10:48 12/28/23 10:48 12/28/23 10:48 12/28/23 10:48
Last Documented Vital Signs
Temp Pulse Resp BP Pulse Ox
98.2 F 68 16 115/71 96
12/28/23 10:48 12/28/23 13:45 12/28/23 13:45 12/28/23 13:45 12/28/23 13:48
MDM/Problems Addressed
Differential Diagnosis Includes:
Electrolyte abnormality, renal failure, medication effect
MDM/Problems Addressed:
Patient was sent to the emergency room by coworkers because she just did not seem herself. She has a nonfocal neurologic exam and answers questions appropriately here. Workup is unremarkable. Patient stable for discharge and outpatient follow-up.
*Pulse Oximetry
Patient hypoxic: no
*Critical Care Note
Total Time (30-74mins, 75-104mins- exclusive of procedures): Not Applicable
ED Attending Note
-
Portions of this chart may have been created with voice recognition software.� Occasional wrong word or��sound alike� substitutions may have occurred due to the inherent limitations of voice recognition software.
Discharge Plan
Departure
Patient Disposition: Home (Routine Discharge)
Date of Disposition: 12/28/23
Time of Disposition: 15:33
Patient with high blood pressure during this ER visit?: No
Condition: Good
Discharge Problem:
Disorientation
Instructions: Altered Mental Status (DC)
Prescriptions:
No Action
multivitamin Tablet
1 tab PO QPM
cetirizine [Zyrtec] 10 mg Tablet
10 mg PO DAILY
glatiramer 40 mg/mL Syringe
40 mg SC MOWEFR@2200
[facility] Comments:
[facility]
loperamide 2 mg Capsule
2 mg PO DAILYPRN PRN (Reason: diarrhea)
cholecalciferol (vitamin D3) 50 mcg (2,000 unit) Tablet
50 mcg PO QPM
cefdinir 300 mg capsule
300 mg PO BID Qty: 12 0RF
Referrals:
Danny Cha CRNP [Family Provider] -
Interventions
Interventions:
*Risk Screen - Suicide Last Done: 12/28/23 10:48
*General Assessment Last Done: 12/28/23 10:48
*Neglect/Abuse Screening Last Done: 12/28/23 10:48
ED- Fall Risk Assessment Last Done: 12/28/23 12:15
*ED COVID-19 Vaccine History Last Done: 12/28/23 15:39
*Nursing Disposition Last Done: 12/28/23 15:39
ED- Pulmonary Assessment Last Done: 12/28/23 12:15
ED- Neurological Assessment Last Done: 12/28/23 12:15
ED- Cardiac Assessment Last Done: 12/28/23 12:15
Discharge Date and Time
Discharge Date/Time: 12/28/23 15:42
Print Language: EMIRATI
[2023-12-28 11:54] VITALS: BMI 19.2
[2023-12-28] MEDS: NSS 500 IV (12:09)
[2023-12-28 12:21] LABS: % Basophils 0.3 % (0-2); % Eosinophils 1.7 % (0-6); % Immature Granulocytes 0.2 % (0-0.5); % Lymphocytes 52.7 % (20.5-51.1); % Monocytes 4.5 % (1.7-9.3); % Neutrophils 40.6 % (42.2-75.2); Absolute Eosinophils 0.1 10^3/uL (0-0.7); Absolute Monocytes 0.3 10^3/uL (0.1-0.6); Absolute Neutrophils 2.3 10^3/uL (1.4-6.5); Hematocrit 36.5 % (37.0-47.0); Hemoglobin 12.5 g/dL (12.0-16.0); Mean Corp Hgb Conc. 34.2 g/dL (33.0-37.0); Mean Corpuscular Hgb 32.5 pg (27.0-31.0); Mean Corpuscular Volume 94.8 fL (81.0-99.0); Mean Platelet Volume 9.8 fL (7.4-10.4); Nucleated Red Blood Cells % 0 %; Platelet Count 211 10^3/uL (130-400); Red Blood Cell Count 3.85 10^6/uL (4.20-5.40); Red Cell Dist. Width 12.2 % (11.5-14.5); White Blood Cell Count 5.8 10^3/uL (4.8-10.8)
[2023-12-28 12:31] LABS: ALT (SGPT) 13 U/L (0-35); AST (SGOT) 21 U/L (14-36); Albumin 3.9 g/dl (3.5-5.0); Alkaline Phosphatase 84 U/L (38-126); Blood Urea Nitrogen 8 mg/dl (7-17); Calcium 9.2 mg/dl (8.4-10.2); Carbon Dioxide 27 mmol/L (22-30); Chloride 110 mmol/L (98-107); Estimated Creatinine Clearance 86 ml/min; Glucose 111 mg/dl (70-99); Magnesium 1.8 mg/dl (1.6-2.3); Potassium 3.8 mmol/L (3.5-5.1); Sodium 144 mmol/L (135-145); Total Bilirubin 0.2 mg/dl (0.2-1.3); Total Protein 6.5 g/dl (6.3-8.2); eGFR > 60.00
[2023-12-28 12:37] LABS: COVID-19 Antigen Negative (Negative)
[2023-12-28 13:45] VITALS: BP 115/71
[2023-12-28 15:24] LABS: Urine Albumin Negative (Neg - Trace); Urine Bilirubin Negative (Negative); Urine Character Clear (Clear); Urine Color Yellow; Urine Glucose Negative (Negative); Urine Ketone Negative (Negative); Urine Leukocyte Negative (Negative); Urine Nitrite Negative (Negative); Urine Occult Blood Trace (Negative); Urine Urobilinogen Negative (Neg - 1+)
[2023-12-28 15:51] LABS: Urine Bacteria Few (Negative); Urine White Cell 0-2 /HPF (0-5)
== END 2023-12-28 15:42 | disposition home or self-care (01) ==
LOC: EMR 10:30
PROVIDERS: EMERGENCY PHYSICIAN Emergency Medicine; FAMILY PHYSICIAN Nurse Practitioner Family
DX: R41.0 Disorientation, unspecified (principal); G35 Multiple sclerosis
CPT/HCPCS: 99284; 96360; 70450; 80053; 81003; 81015; 83735; 84443; 85025; 87811

== ENCOUNTER → 2024-02-05 12:22 | Outpatient (REF) | payer BC, SELFPAY ==
[2024-02-05 13:15] LABS: % Basophils 0.4 % (0-2); % Eosinophils 1.2 % (0-6); % Immature Granulocytes 0.2 % (0-0.5); % Monocytes 7.2 % (1.7-9.3); Absolute Eosinophils 0.1 10^3/uL (0-0.7); Absolute Monocytes 0.4 10^3/uL (0.1-0.6); Absolute Neutrophils 2.6 10^3/uL (1.4-6.5); Hematocrit 39.9 % (37.0-47.0); Hemoglobin 13.4 g/dL (12.0-16.0); Mean Corp Hgb Conc. 33.6 g/dL (33.0-37.0); Mean Corpuscular Hgb 32.8 pg (27.0-31.0); Mean Corpuscular Volume 97.6 fL (81.0-99.0); Mean Platelet Volume 10.7 fL (7.4-10.4); Nucleated Red Blood Cells % 0 %; Platelet Count 178 10^3/uL (130-400); Red Blood Cell Count 4.09 10^6/uL (4.20-5.40); Red Cell Dist. Width 12.6 % (11.5-14.5)
[2024-02-05 13:54] LABS: ALT (SGPT) 11 U/L (0-35); AST (SGOT) 23 U/L (14-36); Albumin 4.7 g/dl (3.5-5.0); Alkaline Phosphatase 110 U/L (38-126); Direct Bilirubin 0.2 mg/dl (0.0-0.4); Total Bilirubin 0.8 mg/dl (0.2-1.3); Total Protein 7.3 g/dl (6.3-8.2)
[2024-02-05 14:14] LABS: Erythrocyte Sed Rate 11 mm/hour (0-20)
[2024-02-08 17:31] LABS: Varicella Zoster IgM 0.46 ISR (<=0.90)
== END ==
LOC: RCS 12:22
PROVIDERS: ATTENDING PHYSICIAN Student in an Organized Health Care Education/Training Program; FAMILY PHYSICIAN Internal Medicine
DX: G35 Multiple sclerosis (principal)
CPT/HCPCS: 36415; 80076; 85025; 85652; 86787; 93005

== ENCOUNTER → 2024-04-08 07:30 | Outpatient (REF) | payer BC, SELFPAY ==
[2024-04-08 08:18] LABS: % Basophils 0.4 % (0-2); % Immature Granulocytes 0.4 % (0-0.5); % Lymphocytes 10.6 % (20.5-51.1); % Monocytes 11.1 % (1.7-9.3); % Neutrophils 76.5 % (42.2-75.2); Absolute Eosinophils 0.1 10^3/uL (0-0.7); Absolute Lymphocytes 0.5 10^3/uL (1.2-3.4); Absolute Monocytes 0.5 10^3/uL (0.1-0.6); Absolute Neutrophils 3.7 10^3/uL (1.4-6.5); Hematocrit 58.7 % (37.0-47.0); Mean Corp Hgb Conc. 34.1 g/dL (33.0-37.0); Mean Corpuscular Hgb 33.4 pg (27.0-31.0); Mean Corpuscular Volume 98.2 fL (81.0-99.0); Mean Platelet Volume 10.9 fL (7.4-10.4); Nucleated Red Blood Cells % 0 %; Platelet Count 180 10^3/uL (130-400); Red Blood Cell Count 5.98 10^6/uL (4.20-5.40); Red Cell Dist. Width 13.5 % (11.5-14.5); White Blood Cell Count 4.8 10^3/uL (4.8-10.8)
[2024-04-08 08:30] LABS: ALT (SGPT) 13 U/L (0-35); AST (SGOT) 27 U/L (14-36); Albumin 4.5 g/dl (3.5-5.0); Alkaline Phosphatase 112 U/L (38-126); Blood Urea Nitrogen 7 mg/dl (7-17); Carbon Dioxide 25 mmol/L (22-30); Chloride 102 mmol/L (98-107); Glucose 69 mg/dl (70-99); HDL Cholesterol 62 mg/dl; LDL Cholesterol, Calculated 77 mg/dl; Potassium 3.9 mmol/L (3.5-5.1); Sodium 140 mmol/L (135-145); Total Bilirubin 0.8 mg/dl (0.2-1.3); Total Cholesterol 184 mg/dl (50-199); Total Protein 7.2 g/dl (6.3-8.2); Triglyceride 226 mg/dl (10-149); Very Low Density Lipoprotein 45 mg/dl (0-30); eGFR > 60.00
[2024-04-08 09:05] LABS: TSH Reflex To Free T4 0.85 uIU/ml (0.47-4.68)
[2024-04-10 05:18] LABS: Vitamin D 1,25 Dihydroxy 45.6 pg/mL (19.9-79.3)
== END ==
LOC: REG 07:30
PROVIDERS: ATTENDING PHYSICIAN Nurse Practitioner Adult Health
DX: E55.9 Vitamin D deficiency, unspecified (principal); Z00.00 Encounter for general adult medical examination without abnormal findings
CPT/HCPCS: 36415; 80053; 80061; 82652; 83036; 84443; 85025

== ENCOUNTER → 2024-04-11 11:05 | Outpatient (REF) | payer BC, SELFPAY ==
[2024-04-11 12:24] LABS: % Basophils 0.2 % (0-2); % Eosinophils 0.7 % (0-6); % Immature Granulocytes 0.2 % (0-0.5); % Lymphocytes 15.6 % (20.5-51.1); % Monocytes 14.4 % (1.7-9.3); % Neutrophils 68.9 % (42.2-75.2); Absolute Lymphocytes 0.7 10^3/uL (1.2-3.4); Absolute Monocytes 0.6 10^3/uL (0.1-0.6); Absolute Neutrophils 2.9 10^3/uL (1.4-6.5); Hematocrit 55.7 % (37.0-47.0); Hemoglobin 19.3 g/dL (12.0-16.0); Mean Corp Hgb Conc. 34.6 g/dL (33.0-37.0); Mean Corpuscular Hgb 33.6 pg (27.0-31.0); Mean Platelet Volume 10.4 fL (7.4-10.4); Nucleated Red Blood Cells % 0 %; Platelet Count 158 10^3/uL (130-400); Red Blood Cell Count 5.74 10^6/uL (4.20-5.40); Red Cell Dist. Width 13.6 % (11.5-14.5); White Blood Cell Count 4.2 10^3/uL (4.8-10.8)
[2024-04-11 14:35] LABS: Glycohemoglobin (HgbA1c) 4.9 % (4.0-5.6)
[2024-04-13 00:05] LABS: Erythropoietin (EPO) 16 mU/mL (4-27)
== END ==
LOC: REG 11:05
PROVIDERS: ATTENDING PHYSICIAN Nurse Practitioner Adult Health
DX: E86.0 Dehydration (principal); R71.8 Other abnormality of red blood cells; Z83.3 Family history of diabetes mellitus; R73.03 Prediabetes
CPT/HCPCS: 36415; 82668; 82728; 83036; 85025

== ENCOUNTER → 2024-05-18 14:09 | Outpatient (REF) | payer BC, SELFPAY | LOC: WDC 14:09 | PROVIDERS: ATTENDING PHYSICIAN Nurse Practitioner Adult Health | DX: G35 Multiple sclerosis (principal); Z78.0 Asymptomatic menopausal state; Z12.31 Encounter for screening mammogram for malignant neoplasm of breast | CPT/HCPCS: 77063; 77067; 77080 ==

== ENCOUNTER → 2024-09-01 15:41 | Outpatient (REF) | payer BC, SELFPAY | LOC: RAD 15:41 | PROVIDERS: ATTENDING PHYSICIAN Nurse Practitioner Adult Health; FAMILY PHYSICIAN Internal Medicine | DX: R05.1 Acute cough (principal); R50.9 Fever, unspecified | CPT/HCPCS: 71046 ==

== ENCOUNTER 2024-10-12 12:36 | Emergency (ER) | payer BC, SELFPAY ==
[2024-10-12 12:41] VITALS: BP 198/111
--- NOTE | 2024-10-12 13:50 | ED.GENMED ---
History of Present Illness
General
Chief Complaint: Weakness
Source: patient and records
Exam Limitations: none
Time Seen by Provider: 10/12/24 13:36
Nursing documentation reviewed up to this point in time: agreed with
History of Present Illness
History of Present Illness:
59-year-old female with a past medical history of COPD, MS, alcohol use who presents to the emergency department for evaluation of shakiness/tremors. 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 She says that this morning while at work she started to
feel very shaky and tremulous, fatigue. She says that nurses on the unit thought that perhaps her sugar could be low and gave her some orange juice and yogurt but this did not help her symptoms and because they were not going away she came to the
ER to be evaluated. She says they have improved slightly but not resolved since arrival. She denies feeling focally weak or numb. She denies any paresthesias. She denies any change in vision or speech. Her only other complaint aside from
tremulousness and fatigue today is that she has been dealing with a cough for the past few days productive of clear sputum. She denies any chest pain or shortness of breath aside from her typical COPD symptoms. She denies any GI symptoms�no
nausea, vomiting, diarrhea. She denies any other complaints. She does admit to occasional alcohol use�she says previously was a heavy drinker and now she does not drink nearly as much but she did have some alcohol last night. She says she has
never had alcohol withdrawal when she does not drink. She denies any heavy caffeine use only caffeine intake today was Pepsi. Although she has been tremulous she has not had any fever or chills.
Review of Systems
Review of Systems
All Other Systems: ROS reviewed and negative except as documented in HPI and ROS
Constitutional: Reports fatigue; Denies fever or chills
EENT: Reports runny nose; Denies sore throat
Respiratory: Reports cough; Denies trouble breathing
Cardiac: Denies chest pain
ABD/GI: Denies abdominal pain, nausea, vomiting or diarrhea
: Denies flank pain
Musculoskeletal: Denies neck pain or back pain
Neurological: Reports other (Tremulous); Denies dizzy, headache, weakness or numbness
Phy Exam
Physical Exam
Physical Exam:
General: Awake, alert, oriented x3; no acute distress
Head: Normocephalic, atraumatic
Eyes: Conjunctiva normal, EOMI
Nose: Copious rhinorrhea
Throat: Airway intact, handling secretions
Neck: Trachea midline, supple without meningismus
Lungs: Occasional wheeze but no focal rales or rhonchi, normal respiratory rate, normal work of breathing, normal pulse ox on room air
Heart: Regular rate and rhythm, no murmurs, gallops, or rubs
Abd: Soft, non distended, nontender
Neuro: Cranial nerves intact, speech fluid no dysarthria, no limb ataxia, motor and sensory intact in all extremities; she does have a moderate resting tremor
Skin: Warm and dry, no rash
Extremities: No edema in extremities, warm and well-perfused
Scores
Heart Failure Risk
Heart Failure Risk Score: Not Applicable
Heart Score for Chest Pain Patients
STEMI patient?: Not applicable
Withdrawal Assessment of Alcohol
Withdrawal Assessment Completed?: Not applicable
Course
Orders/Labs/Results
Orders:
Orders
10/12/24 13:46
Urinalysis Reflex To Culture Urgent
CR Chest - 2 Views Urgent
Comment:
Reason For Exam: chlls, cough
10/12/24 13:50
Electrocardiogram (*1) Urgent
Reason for Study: Fatigue / Weakness
Bedside Glucose- Treatment ONCE
EKG- Treatment ONCE
10/12/24 13:52
COVID-19 Antigen Urgent
Source: Nasal Swab
Complete Blood Count/With Diff Urgent
Comprehensive Metabolic Panel Urgent
TSH Reflex To Free T4 Urgent
Influenza A+B Rapid Molecular Urgent
ELIA Source: Nasal Swab
Specimen Description:
10/12/24 14:19
Potassium Chloride [KCl] 40 meq PO NOW STA
Abnormal Lab Results
10/12/24
13:52
MCV 99.3 H fL
(81.0-99.0)
MCH 33.8 H pg
(27.0-31.0)
Absolute Lymphs (auto) 0.5 L 10^3/uL
(1.2-3.4)
Absolute Monos (auto) 0.7 H 10^3/uL
(0.1-0.6)
Neutrophils % 80.5 H %
(42.2-75.2)
Lymphocytes % 7.4 L %
(20.5-51.1)
Monocytes % 10.9 H %
(1.7-9.3)
Sodium 134 L mmol/L
(135-145)
Potassium 3.1 L mmol/L
(3.5-5.1)
Chloride 93 L mmol/L
(98-107)
Carbon Dioxide 32 H mmol/L
(22-30)
BUN 4 L mg/dl
(7-17)
Creatinine 0.3 L mg/dL
(0.6-1.0)
Glucose 110 H mg/dl
(70-99)
AST 49 H U/L
(14-36)
Alkaline Phosphatase 128 H U/L
(38-126)
10/12/24 13:52
10/12/24 13:52
Vital Signs
Pulse: 80
Blood pressure: 176/88
Initial and Last Documented VS:
Initial Vital Signs
Temp Pulse Resp BP Pulse Ox
36.8 C 83 16 198/111 95
10/12/24 12:41 10/12/24 12:41 10/12/24 12:41 10/12/24 12:41 10/12/24 12:41
Last Documented Vital Signs
Temp Pulse Resp BP Pulse Ox
36.8 C 83 16 198/111 95
10/12/24 12:41 10/12/24 12:41 10/12/24 12:41 10/12/24 12:41 10/12/24 12:41
MDM/Problems Addressed
Differential Diagnosis Includes:
Differential diagnosis for tremulousness: Rigors/chills with infection such as pneumonia, viral syndrome, UTI; anemia or electrolyte derangement; alcohol withdrawal; hyperthyroidism; excessive caffeine intake; anxiety
MDM/Problems Addressed:
59-year-old female with history as noted presents for evaluation of tremulousness and fatigue that started this morning and has been ongoing for the past few hours. Her symptoms have improved slightly but not resolved. Hypertensive otherwise
normal vitals. Physical exam as above. Plan to check labs including a CBC and a CMP, thyroid studies, viral panel. Check chest x-ray, urinalysis. Check an EKG. While she does have history of alcohol use she says she has not had withdrawal in the
past and although she has a minor tremor she does not have any other objective signs of withdrawal such as diaphoresis, GI symptoms, headache, etc. while she has been dealing with a cough and has COPD she says she has not been using excessive
albuterol. She does admit she did not eat well this morning could be that she was hypoglycemic and that foods given by nursing have improved her symptoms. Glucose acceptable. Monitor closely reassess after the above.
Labs reviewed: CBC unremarkable, CMP did show some hypokalemia which we will replete p.o. No other clinically significant abnormalities. Thyroid studies normal. Viral swabs negative. Chest x-ray reviewed by me shows no acute disease. EKG shows
sinus rhythm. Patient feeling better after ED observation and tremor has decreased. Low suspicion for emergent pathology at this point. Blood pressure is improving, heart rate normal she has no other signs or symptoms of alcohol withdrawal;
furthermore she says she does not drink every day only about 2 or 3 days a week and on the days she does not drink she never gets any tremulousness or withdrawal symptoms. Low suspicion that she is in acute alcohol withdrawal. I think she is
stable for discharge I advised her to eat when she goes home�she says that she has not had a meal all day. Advised her to follow-up with her primary doctor to have her potassium rechecked. Will prescribe her a short course of steroids for her
persistent cough for the past 2 to 3 days which I suspect is likely viral but may be worsened by her COPD. She feels very comfortable with this plan. We spoke about return precautions and all questions were answered.
Chronic conditions affecting care:
COPD
Acute Exacerbation and/or Progression of Chronic Illness:
Acutely hypertensive
Acute Exacerbation and/or Progression of Chronic Illness: HTN
*Radiology
Radiology exam reviewed: preliminary read by ED provider
*Pulse Oximetry
Patient hypoxic: no
*EKG
Interpreted by ED Provider?: Yes
Heart Rate: 78
Rate: normal
Rhythm: sinus
[place]: normal axis
Interval: normal interval
QRS Pattern: normal QRS
Ischemia: no ischemia
*Critical Care Note
Total Time (30-74mins, 75-104mins- exclusive of procedures): Not Applicable
Data Reviewed
Review of Other/Old Records Reveals: Labs and Records
Source: patient and records
ED Attending Note
-
Portions of this chart may have been created with voice recognition software.� Occasional wrong word or��sound alike� substitutions may have occurred due to the inherent limitations of voice recognition software.
Discharge Plan
Departure
Patient Disposition: Home (Routine Discharge)
Date of Disposition: 10/12/24
Time of Disposition: 15:09
Patient with high blood pressure during this ER visit?: Yes
Discharge Problem:
Tremulousness, Cough, Hypokalemia
Instructions: Tremor, COPD exacerbation - Discharge instructions
Prescriptions:
New
methylprednisolone [Medrol (Malik)] 4 mg tablets,dose pack
See Rx Instructions .ROUTE .COMPLEX Qty: 21 0RF
Rx Instructions:
for 6 days
No Action
multivitamin Tablet
1 tab PO QPM
cetirizine [Zyrtec] 10 mg Tablet
10 mg PO DAILY
glatiramer 40 mg/mL Syringe
40 mg SC MOWEFR@2200
Patient Comments:
[facility]
loperamide 2 mg Capsule
2 mg PO DAILYPRN PRN (Reason: diarrhea)
cholecalciferol (vitamin D3) 50 mcg (2,000 unit) Tablet
50 mcg PO QPM
cefdinir 300 mg capsule
300 mg PO BID Qty: 12 0RF
Referrals:
Ronald Carmen I., DO [Family Provider] - Follow up in 2-3 days
Activity Restrictions/Additional Instructions:
Thank you for visiting the Emergency Department at [facility].
1. Please schedule a follow up appointment as directed. Call first thing tomorrow morning to make an appointment.
2. If indicated, please take your medications as instructed and indicated on discharge paperwork.
3. If any of your symptoms do not improve, or persist, or become more severe within 6-12 hours, please return to the emergency department for further care.
4. Please return to the emergency department if you develop a headache, neck pain/stiffness, fever greater than 100.4F, chest pain, shortness of breath, persistent nausea, vomiting, slurred speech, difficulty walking, numbness/tingling, weakness,
signs of infection or any other symptoms that are worrisome to you.
Please call [phone] if you have any questions.
Interventions
Interventions:
*Risk Screen - Suicide Last Done: 10/12/24 14:47
*Neglect/Abuse Screening Last Done: 10/12/24 14:47
ED- Cardiac Assessment Last Done: 10/12/24 14:44
ED- Neurological Assessment Last Done: 10/12/24 14:46
ED- Pulmonary Assessment Last Done: 02/24/25 14:46
Discharge Date and Time
Print Language: QATARI
[2024-10-12 14:08] LABS: % Basophils 0.5 % (0-2); % Eosinophils 0.2 % (0-6); % Immature Granulocytes 0.5 % (0-0.5); % Lymphocytes 7.4 % (20.5-51.1); % Monocytes 10.9 % (1.7-9.3); % Neutrophils 80.5 % (42.2-75.2); Absolute Lymphocytes 0.5 10^3/uL (1.2-3.4); Absolute Monocytes 0.7 10^3/uL (0.1-0.6); Absolute Neutrophils 4.9 10^3/uL (1.4-6.5); Hematocrit 44.7 % (37.0-47.0); Hemoglobin 15.2 g/dL (12.0-16.0); Mean Corpuscular Hgb 33.8 pg (27.0-31.0); Mean Corpuscular Volume 99.3 fL (81.0-99.0); Mean Platelet Volume 9.2 fL (7.4-10.4); Nucleated Red Blood Cells % 0 %; Platelet Count 218 10^3/uL (130-400); Red Cell Dist. Width 12.5 % (11.5-14.5); White Blood Cell Count 6.1 10^3/uL (4.8-10.8)
[2024-10-12 14:19] LABS: ALT (SGPT) 21 U/L (0-35); AST (SGOT) 49 U/L (14-36); Albumin 3.9 g/dl (3.5-5.0); Alkaline Phosphatase 128 U/L (38-126); Blood Urea Nitrogen 4 mg/dl (7-17); Calcium 8.9 mg/dl (8.4-10.2); Carbon Dioxide 32 mmol/L (22-30); Chloride 93 mmol/L (98-107); Glucose 110 mg/dl (70-99); Potassium 3.1 mmol/L (3.5-5.1); Sodium 134 mmol/L (135-145); Total Bilirubin 1.1 mg/dl (0.2-1.3); Total Protein 6.7 g/dl (6.3-8.2); eGFR > 60.00
[2024-10-12 14:31] LABS: COVID-19 Antigen Negative (Negative)
[2024-10-12 14:49] LABS: TSH Reflex To Free T4 0.98 uIU/ml (0.47-4.68)
[2024-10-12] MEDS: KCL 40 MEQ PO (15:07)
[2024-10-12 15:24] VITALS: BP 178/68
== END 2024-10-12 15:50 | disposition home or self-care (01) ==
LOC: EMR 12:36
PROVIDERS: EMERGENCY PHYSICIAN Emergency Medicine; FAMILY PHYSICIAN Internal Medicine
DX: E87.6 Hypokalemia (principal); R05.9 Cough, unspecified; R25.1 Tremor, unspecified; J44.9 Chronic obstructive pulmonary disease, unspecified; G35 Multiple sclerosis; Z11.52 Encounter for screening for COVID-19
CPT/HCPCS: 99285; 71046; 80053; 84443; 85025; 87502; 87811; 93005

== ENCOUNTER 2025-02-08 17:24 | Observation (INO) | payer BC, SELFPAY ==
[2025-02-08] VITALS (9 sets, daily range): BP systolic 155–190; BP diastolic 76–97; BMI 18.6
--- NOTE | 2025-02-08 12:27 | ED.GENMED ---
History of Present Illness
General
Chief Complaint: Weakness
Source: patient
Exam Limitations: none
Time Seen by Provider: 02/08/25 12:11
History of Present Illness
History of Present Illness:
59yoF with a history of multiple sclerosis and COPD presenting for evaluation of tremors. 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 She started to feel shaky and tremulous around 10am this morning. Her coworkers helped transport her to the ED. She
is now feeling improved but symptoms have not completely resolved. These symptoms are not typical for her MS flares. She did not eat anything today. She denies any headache, visual changes, speech disturbance, chest pain, shortness of breath. Of
note, patient was seen in the ED in September of this year for similar complaints. She has a documented history of alcohol abuse although denies every having alcohol withdrawal in the past. She drinks about 2 shots of whiskey at nighttime.
Phy Exam
General Physical Exam
General Presentation: no apparent distress
General Skin: warm and dry
General Habitus: normal
General Mental: alert
ENT Exam
ENT Exam: normocephalic
Eye Exam
Eye Exam: PERRL, EOMI and conjunctiva normal
Cardiovascular Exam
Cardiovascular Exam: regular rate/rhythm and normal peripheral pulses (2+ DP pulses bilaterally)
Pulmonary Exam
Pulmonary Exam: lungs clear, no respiratory distress, no rales, no crackles, no rhonchi and no wheezing
Neurological Exam
Neurological Exam: alert and other (Tremors noted in bilateral upper extremities)
[place] Coma Scale
Eye Opening: Spontaneous
Verbal Response: Oriented
Motor Response: Obeys Commands
GCS Total Score: 15
Skin Exam
Skin Exam: normal color and warm/dry
Psychiatric Exam
Psychiatric Exam: anxious
Course
Orders/Labs/Results
Orders:
Orders
02/08/25 12:18
CBC/With Diff [Complete Blood Count/With Diff] Urgent
CMP [Comprehensive Metabolic Panel] Urgent
Magnesium Urgent
Comment: ADD
TSH Urgent
Comment: ADD
02/08/25 12:26
Electrocardiogram (*1) Urgent
Reason for Study: Fatigue / Weakness
CT Head W/o Iv Contrast Urgent
Comment:
Reason For Exam: tremors
Cardiac Monitoring- Treatment ONCE
EKG- Treatment ONCE
0.9% Sodium Chloride 1000 ml [Nss] 1,000 ml IV BOLUS
02/08/25 12:39
Troponin I Urgent
02/08/25 13:14
Urinalysis Reflex To Culture Urgent
Date Specimen was Collected: 02/08/25
Time Specimen was Collected: 13:01
Urine Microscopic Reflex Cult Urgent
Urine Culture Urgent
ELIA Source: U
Specimen Description:
Date Specimen was Collected: 02/08/25
Time Specimen was Collected: 13:01
02/08/25 13:25
Magnesium Sulfate 2 Gram/50 ml [Magnesium Sulfate] 2 gram in 50 ml IV NOW
02/08/25 14:35
Lorazepam [Ativan] 1 mg IV NOW STA
02/08/25 Dinner
Regular
At Your Request: Full Participation
Does patient need a safe tray?: No
02/08/25 15:58
CefTRIAXone [Rocephin] 2,000 mg IV NOW STA
02/08/25 16:47
Admit/Transfer Patient As Directed
Co-Sign Provider:
Level of Care: Observation services
Assign to:: Telemetry
Physician / Group: Chema Cobos
Diagnosis: symptomatic UTI, hypomagnesaemia, ETOH withdraw
Reason for Telemetry: Arrhythmia
Date to Stop Telemetry: 02/11/25
Time to Stop Telemetry: 11:00
PRN Pain Medication Management As Directed
May give lesser potent ordered pain med per pt: Yes
preference::
Protocol:: Medication orders for pain may be administered in a
manner that supports deferring to patient preference
when the pt is:
- Requesting an ordered lesser potent pain medication.
Least to most potent pain medications are defined
as: acetaminophen < NSAID < tramadol < opioids
(morphine, oxycodone, hydromorphone).
- Requesting a lesser dose of the same medication IF
ORDERED.
- Requesting a less intrusive route of administration
if both routes are prescribed by the provider (PO <
IV).
02/08/25 16:49
Code Status As Directed
Resuscitation Status: Full Code
02/08/25 17:53
0.9% Sodium Chloride [Nss (Preservative Free)] See Protocol IV PRN PRN
Acetaminophen [Tylenol] 650 mg PO Q4HPRN PRN
FOLic ACID [Folvite] 1 mg 0.9% Sodium Chloride 50 ml [Nss] 50 ml IV DAILYPRN
Lorazepam [Ativan] 1 mg PO Q2HPRN PRN
Lorazepam [Ativan] 2 mg IV Q1HPRN PRN
02/08/25 17:53
Case Management Consult Once
Case Management Consult: Other
Comment: Substance abuse counseling
DIETARY IP CONSULT Routine
Reason for Consult: Nutrition support, possible refeeding guidelines
Alcohol Urgent
B-Hydroxybutyrate Urgent
GGTP Urgent
PTT Urgent
Phosphorus Urgent
Prothrombin Time Urgent
Urine Drug Abuse Screen Routine
Activity As Directed
Activity Level: As Tolerated
MSAS SCORE As Directed
MSAS Score 0-4: Repeat MSAS every 2 hours until 0-4 for three consecutive assessments, then every 4 hours x 48
hours.
MSAS Score 5-7: For MILD withdrawl symptoms. Repeat MSAS and RASS every 2 hours
MSAS Score 8-11: For MODERATE withdrawal symptoms. Repeat MSAS and RASS every 1 hour. Consider ICU or IMU
level of care.
MSAS Score > 11: For SEVERE withdrawal symptoms. Repeat MSAS and RASS every 1 hour. Notify provider, consider
ICU level of care.
MSAS Additional Instructions: If no improvement or no decrease in score from severe to moderate within 12
hours, consult psychiatry
MSAS Notify Provider: Notify provider if patient requires more than 10 mg of Lorazepam in eight hour period.
Vital Signs As Directed
Frequency: Per unit guidelines
Weight As Directed
Frequency: Once
Comment: on admission
PT Consult [Pt Eval And Treat] Routine
Activity Level: Out of Bed-Early Mobility
DX Deep Vein Thrombosis Video Routine
02/08/25 17:56
Lorazepam [Ativan] 1 mg PO Q1HPRN PRN
02/08/25 18:00
Cholecalciferol (Vitamin D3) [VITAMIN D3 (cholecalciferol)] 50 mcg PO QPM
Enoxaparin Sodium [Lovenox] 40 mg SC QPM
Multivitamin [Theragran] 1 tablet PO QPM
ozanimod See Dose Instructions PO QPM
02/08/25 20:00
Thiamine Injection 200 mg IV Q12
02/09/25 06:00
Basic Metabolic Panel IN AM
Complete Blood Count/No Diff IN AM
Magnesium IN AM
02/09/25 08:00
FOLic ACID [Folvite] 1 mg PO DAILY
02/11/25 11:00
DC Protocol for Telemetry ONCE
02/11/25 20:00
Thiamine HCl [Vitamin B1] 100 mg PO BID
Abnormal Lab Results
02/08/25 02/08/25
12:18 13:14
WBC 3.7 L 10^3/uL
(4.8-10.8)
MCH 33.8 H pg
(27.0-31.0)
Absolute Lymphs (auto) 0.2 L 10^3/uL
(1.2-3.4)
Neutrophils % 84.9 H %
(42.2-75.2)
Lymphocytes % 4.9 L %
(20.5-51.1)
Monocytes % 9.6 H %
(1.7-9.3)
Creatinine 0.4 L mg/dL
(0.6-1.0)
Glucose 107 H mg/dl
(70-99)
Magnesium 1.5 L mg/dl
(1.6-2.3)
AST 40 H U/L
(14-36)
Urine Ketones 3+ A
(Negative)
Ur Occult Blood Reflex 3+ A
(Negative)
Urine Nitrite (Reflex) Positive A
(Negative)
Leukocyte Esterase Rfl 1+ A
(Negative)
Urine WBC (Reflex) 21-25 A /HPF
(0-5)
Urine Bacteria (Reflex) Many A
(Negative)
Urine Albumin (Reflex) 2+ A
(Neg - Trace)
02/08/25 12:18
02/08/25 12:18
Vital Signs
Initial and Last Documented VS:
Initial Vital Signs
Temp Pulse Resp BP Pulse Ox
98.0 F 91 18 158/89 98
02/08/25 10:29 02/08/25 10:29 02/08/25 10:29 02/08/25 10:29 02/08/25 10:29
Last Documented Vital Signs
Temp Pulse Resp BP Pulse Ox
97.9 F 80 16 177/97 97
02/08/25 18:15 02/08/25 18:15 02/08/25 18:15 02/08/25 18:15 02/08/25 18:15
MDM/Problems Addressed
Differential Diagnosis Includes:
59yoF here with tremors and difficulty standing that started at 10am. Hx of MS. Seen in ED earlier this year for similar issues. Hx of daily alcohol use. She is hypertensive with otherwise stable vitals. She appears anxious and is tremulous on exam.
Differential diagnosis includes but is not limited to: Thyroid dysfunction, alcohol withdrawal, anxiety, less likely MS flare
Initial ED plan: Check cardiac labs, TSH, UA, EKG, and CT head. IV fluid bolus.
*Pulse Oximetry
SaO2: 96
Oxygen Mode of Delivery: Room air
Patient hypoxic: no (98%)
*EKG
Interpreted by ED Provider?: Yes
EKG Intrepretation Date: 02/08/25
Heart Rate: 75
Rate: normal
Rhythm: sinus
[place]: normal axis
Interval: normal interval
QRS Pattern: normal QRS
Ischemia: no ischemia
*Critical Care Note
Total Time (30-74mins, 75-104mins- exclusive of procedures): Not Applicable
Update Note
Update Note:
Labs reveal a magnesium of 1.5 which was replaced. EKG shows normal sinus rhythm without ischemic changes and troponin within normal limits. UA is nitrite positive with many bacteria although >30/LFT squamous epithelial cells present suggesting
contaminated sample. She is symptomatic with urinary frequency. CT head negative for acute findings. Patient reports feeling worse on reassessment. She was given a dose of IV Ativan for possible alcohol withdrawal with some improvement although
she continues to have difficulty ambulating. Patient admitted for further management.
ED Attending Note
-
Portions of this chart may have been created with voice recognition software.� Occasional wrong word or��sound alike� substitutions may have occurred due to the inherent limitations of voice recognition software.
Discharge Plan
Departure
Patient Disposition: Admit
Date of Disposition: 02/08/25
Time of Disposition: 16:01
Presentation/result/management discussed w/ accepting MD/DO: Hospitalist
Discharge Problem:
Tremor, Ambulatory dysfunction, Urinary tract infection
Interventions
Interventions:
*Risk Screen - Suicide Last Done: 02/08/25 12:21
*General Assessment Last Done: 02/08/25 12:21
*Neglect/Abuse Screening Last Done: 02/08/25 12:21
*ED- Fall Risk Assessment Last Done: 02/08/25 12:21
*ED COVID-19 Vaccine History Last Done: 02/08/25 12:21
*Nursing Disposition Last Done: 02/08/25 17:55
ED- Cardiac Assessment Last Done: 02/08/25 12:26
ED- Neurological Assessment Last Done: 02/08/25 12:26
ED- Pulmonary Assessment Last Done: 02/08/25 12:26
Discharge Date and Time
Discharge Date/Time: 02/08/25 17:56
[2025-02-08 12:34] LABS: % Basophils 0.3 % (0-2); % Immature Granulocytes 0.3 % (0-0.5); % Lymphocytes 4.9 % (20.5-51.1); % Monocytes 9.6 % (1.7-9.3); % Neutrophils 84.9 % (42.2-75.2); Absolute Lymphocytes 0.2 10^3/uL (1.2-3.4); Absolute Monocytes 0.4 10^3/uL (0.1-0.6); Absolute Neutrophils 3.1 10^3/uL (1.4-6.5); Hematocrit 41.9 % (37.0-47.0); Hemoglobin 14.6 g/dL (12.0-16.0); Mean Corp Hgb Conc. 34.8 g/dL (33.0-37.0); Mean Corpuscular Hgb 33.8 pg (27.0-31.0); Mean Platelet Volume 10.1 fL (7.4-10.4); Nucleated Red Blood Cells % 0 %; Platelet Count 170 10^3/uL (130-400); Red Blood Cell Count 4.32 10^6/uL (4.20-5.40); Red Cell Dist. Width 12.4 % (11.5-14.5); White Blood Cell Count 3.7 10^3/uL (4.8-10.8)
[2025-02-08] MEDS: NSS 1000 IV (12:40)
[2025-02-08 12:53] LABS: ALT (SGPT) 19 U/L (0-35); AST (SGOT) 40 U/L (14-36); Albumin 4.4 g/dl (3.5-5.0); Alkaline Phosphatase 89 U/L (38-126); Blood Urea Nitrogen 8 mg/dl (7-17); Calcium 9.2 mg/dl (8.4-10.2); Carbon Dioxide 24 mmol/L (22-30); Chloride 106 mmol/L (98-107); Glucose 107 mg/dl (70-99); Potassium 3.5 mmol/L (3.5-5.1); Sodium 137 mmol/L (135-145); Total Bilirubin 1.3 mg/dl (0.2-1.3); Total Protein 6.9 g/dl (6.3-8.2); eGFR > 60.00
[2025-02-08 13:16] LABS: Troponin I < 0.012 ng/ml
[2025-02-08 13:20] LABS: Urine Albumin 2+ (Neg - Trace); Urine Bilirubin Negative (Negative); Urine Character Clear (Clear); Urine Color Yellow; Urine Glucose Negative (Negative); Urine Ketone 3+ (Negative); Urine Leukocyte 1+ (Negative); Urine Nitrite Positive (Negative); Urine Occult Blood 3+ (Negative); Urine Specific Gravity 1.025 (<1.030); Urine Urobilinogen Negative (Neg - 1+)
[2025-02-08 13:21] LABS: Magnesium 1.5 mg/dl (1.6-2.3)
[2025-02-08 13:42] LABS: Urine Squamous Cell >30 /LPF (Few)
[2025-02-08 13:43] LABS: Urine Amorphous Seen
[2025-02-08 13:46] LABS: Urine Bacteria Many (Negative); Urine White Cell 21-25 /HPF (0-5)
[2025-02-08 13:47] LABS: Urine Red Blood Cell 0-2 /HPF (0-2)
[2025-02-08 14:08] LABS: TSH 0.71 uIU/ml (0.47-4.68)
[2025-02-08] MEDS: MAGNESIUM SULFATE 50 IV (14:16)
[2025-02-08] MEDS: ATIVAN 1 MG IV (15:15)
--- NOTE | 2025-02-08 16:02 | HPS.HSE ---
Addendum entered and electronically signed by OSMAR Bello 02/08/25 17:05:
Patient requesting bed assignment to NOT be on her employed unit, noted to admission.
Original Note:
Family Physician
-
Family Physician: OSMAR Estrada
Chief Complaint
-
tremors
History of Present Illness
Patient is a 59-year-old female with past medical history significant for multiple sclerosis and COPD who presented to [facility] ED for evaluation of tremors. 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
began feeling tremulous and shaky. Colleagues working with her helped transport her down to ED for evaluation. Patient states this is not normal symptoms of her MS flares. She reports that she did not eat anything today and she is a daily ETOH
drinker. Patient does mention that she had tremors that were similar to this one time before about a year ago and they spontaneously resolved on their own. She feels that episode today was worse than previous one. Patient reports numbness and
tingling in bilateral feet is common for her with the MS but today it was associated with weakness and the feeling she could not hold herself up. She does report not feeling well over weekend and on Saturday02/06/2025 she had a GI bug with diarrhea
that has since resolved. She reports some increased urinary urgency and frequency with episodes of stress incontinence that is worse from her baseline. She denies any fever, chills, cough, shortness of breath, chest pain, nausea, vomiting or
constipation.
Medical History
Past Medical History
Past Medical History: Reports Other
Additional Past Medical History:
Multiple sclerosis
COPD/ emphysema
ETOH use disorder
chronic gait dysfunction require walker
Past Surgical History: Reports Other
Additional Past Surgical History:
multiple tooth extractions
Social History
Tobacco: Former Smoker (30 pack year history, quit approximately 4 years ago )
Alcohol: Daily (2 shots of whiskey nightly )
Drug: Marijuana (medical marijuana gummies for insomnia nightly )
Personal:
Living: With Family
Employment: Employed
Family History
Family History: Not pertinent
Allergies / Home Medications
Allergies reflects when Allergies were last updated in [facility].
Home Medications with original date entered in [facility]
Allergy/Medication List:
Allergies
Allergy/AdvReac Type Severity Reaction Status Date / Time
No Known Allergies Allergy Verified 10/12/24 12:44
Home Medications
multivitamin 1 tab PO QPM Supplement 11/19/23
cholecalciferol (vitamin D3) 50 mcg (2,000 unit) tablet 50 mcg PO QPM Supplement 11/20/23
ozanimod 0.92 mg capsule 0.92 mg PO QPM 02/08/25
Review of Systems
-
History Source: Patient
Abdomen/GI: Reports Diarrhea
: Reports Frequency, Incontinence and Urgency
Neurological: Reports Weakness and Other (tremors )
Physical Exam
Vital Signs
Vital Signs
Temp Pulse Resp BP Pulse Ox
99.0 F 86 21 157/79 96
02/08/25 15:16 02/08/25 15:15 02/08/25 15:15 02/08/25 15:00 02/08/25 14:15
Physical Exam
General: Well Developed, Well Nourished, No Apparent Distress, Comfortable and Conversant
HEENT: NormoCephalic, Moist mucous membranes, Atraumatic, Nose Appears Normal and Ears Appear Normal
Respiratory: Clear and Non Labored Respirations
Cardiac: S1/S2 and Regular Rhythm
Breast: Deferred by me
GI: Soft, Non Tender, Non Distended and Normal Bowel Sounds
Rectal: Deferred by Provider
Genito-urinary: Deferred by me
Musculoskeletal: No Clubbing, No Cyanosis and No Edema; No Normal Gait & Station
Skin: IV/Catheter Site
Neuro: Awake, Alert, AO x 3 and Nonfocal/grossly intact
Psych: Calm and Intact Judgment/Insight
Laboratory Results
-
02/08/25 12:18
02/08/25 12:18
Laboratory Results
Total Bilirubin 1.3 mg/dl (0.2-1.3) 02/08/25 12:18
AST 40 U/L (14-36) H 02/08/25 12:18
ALT 19 U/L (0-35) 02/08/25 12:18
Alkaline Phosphatase 89 U/L (38-126) 02/08/25 12:18
Troponin I < 0.012 ng/ml 02/08/25 12:39
Data Reviewed
-
CT Scan: Report Reviewed by me (Head: No acute intracranial abnormality noted. No acute intracranial hemorrhage or mass effect. Subtle indistinct regions of subcortical white matter diminished attenuation noted, bilaterally. Possibly reflecting
chronic microvascular ischemic changes.)
Medical Tests (Nuc Med, Echo, EKG etc): Report Reviewed by me (EKG: NORMAL SINUS RHYTHM)
Lab Data: Labs Reviewed by me (Mag 1.5)
Impression/Plan
-
IMPRESSION/PLAN:
#ambulatory dysfunction
#symptomatic UTI
UA: indicative of UTI
Urine Cx: pending
Head CT: No acute intracranial abnormality noted. No acute intracranial hemorrhage or mass effect. Subtle indistinct regions of subcortical white matter diminished attenuation noted, bilaterally. Possibly reflecting chronic
microvascular ischemic changes.
EKG: NORMAL SINUS RHYTHM
- Admit to telemetry
- IV antibiotics Ceftriaxone
- supportive care
- Consult PT
#hypomagnesemia
Mag 1.5
- repleted in ED
- check Mag in morning
#multiple sclerosis
- continue ozanimod
#ETOH dependency
patient stopped drinking abruptly in past with no withdraw symptoms
2 ounces whiskey nightly
- low risk MSAS protocol to monitor for withdraw
#COPD
Code status: full code
DVT prophylaxis: Lovenox sq
[2025-02-08] MEDS: ROCEPHIN 2000 MG IV (16:30)
--- NOTE | 2025-02-08 16:37 | W.PN.UPDATE ---
Update Note
Progress Note Update
This note serves as an addendum to the H&P by pellet mill operator IBRAHIMA Jacqueline Wilson
HPI
59F HX MS, ETOH use disorder pw
- difficulty ambulating that began around 10am.
- tremulous on arrival
- report a history of heavy alcohol use.
- Symptoms improved with Ativan but she still does not feel baseline.
- NEG CT
Vital Signs
Temp Pulse Resp BP Pulse Ox
99.0 F 86 21 157/79 96
02/08/25 15:16 02/08/25 15:15 02/08/25 15:15 02/08/25 15:00 02/08/25 14:15
PE
Gen: anxious
HEENT: anicteric
Neck: supple
Lungs: CTA
Cor:RRR S1 S2
Abdomen: soft NT NG NRT
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
MS: no edema
Psych: Nl mood and affect
Abnormal Lab Results
02/08/25 02/08/25
12:18 13:14
WBC 3.7 L
MCH 33.8 H
Absolute Lymphs (auto) 0.2 L
Neutrophils % 84.9 H
Lymphocytes % 4.9 L
Monocytes % 9.6 H
Creatinine 0.4 L
Glucose 107 H
Magnesium 1.5 L
AST 40 H
Urine Ketones 3+ A
Ur Occult Blood Reflex 3+ A
Urine Nitrite (Reflex) Positive A
Leukocyte Esterase Rfl 1+ A
Urine WBC (Reflex) 21-25 A
Urine Bacteria (Reflex) Many A
Urine Albumin (Reflex) 2+ A
Last hospitalist admission: 11/20/23 -11/20/23
Principal Discharge diagnosis :
Generalized weakness and fall Alcohol intoxication
Chronic Discharge diagnosis :
History of multiple sclerosis
Alcohol use disorder
Chronic obstructive pulmonary disease
Tobacco use disorder
ASSESSMENT & PLAN
Concerning for acute ETOH WDS -low vs hi
last ETOH - last night 2 shots of whisky and has been start drinking for last 6 weeks
HX ETOH use disorder
No prior HX ETOH use
- Observe Low risk ETOH WD protocol
Symptomatic UTI
Hemodynamically stable
- Empiric IV CFTX
- f/u UCx
HX MS
Acute on chr gait dysfunction use walker
NEG HCT for acute pathology
- PT/OT
DVT Px: LMWH
Code:Full code
IP MS
--- NOTE | 2025-02-08 18:17 | PTCARENOTE ---
Patient admitted for decreased balance and shakiness.History of multiple sclerosis.She does report the start of a headache with pain at a 3 out of 10.Other diagnoses include UTI,low magnesium, and alcohol withdrawal.The patient is alert and oriented
x3 and rings appropriately.She is in her bed with the call santizo in reach.Her is at the bedside.
[2025-02-08] MEDS: VITAMIN D3 (cholecalciferol) 50 MCG PO (19:47)
[2025-02-08] MEDS: THIAMINE INJECTION 200 MG IV (19:48)
[2025-02-08] MEDS: THERAGRAN 1 TABLET PO (19:48)
[2025-02-08] MEDS: LOVENOX 40 MG SC (19:49)
[2025-02-08 21:14] LABS: INR 1.11; PT 14.6 Sec (11.4-14.6)
[2025-02-08 21:15] LABS: APTT 34.6 Sec (23.4-35.0)
[2025-02-08] MEDS: ATIVAN 0.5 MG PO (22:03)
[2025-02-09] VITALS (8 sets, daily range): BP systolic 117–183; BP diastolic 83–107; PULSE 98
[2025-02-09 00:23] LABS: GGTP 187 U/L (12-43); Phosphorus 2.4 mg/dl (2.5-4.5)
[2025-02-09 00:24] LABS: Alcohol None Detected
[2025-02-09 00:29] LABS: B-Hydroxybutyrate 0.72 mmol/L (0.02-0.27)
[2025-02-09 06:32] LABS: Hematocrit 43.7 % (37.0-47.0); Mean Corp Hgb Conc. 34.3 g/dL (33.0-37.0); Mean Corpuscular Hgb 33.8 pg (27.0-31.0); Mean Corpuscular Volume 98.4 fL (81.0-99.0); Platelet Count 169 10^3/uL (130-400); Red Blood Cell Count 4.44 10^6/uL (4.20-5.40); White Blood Cell Count 3.5 10^3/uL (4.8-10.8)
[2025-02-09 06:54] LABS: Blood Urea Nitrogen 4 mg/dl (7-17); Calcium 9.2 mg/dl (8.4-10.2); Carbon Dioxide 25 mmol/L (22-30); Chloride 103 mmol/L (98-107); Estimated Creatinine Clearance 82 ml/min; Glucose 119 mg/dl (70-99); Magnesium 2.1 mg/dl (1.6-2.3); Potassium 3.6 mmol/L (3.5-5.1); Sodium 135 mmol/L (135-145); eGFR > 60.00
[2025-02-09] MEDS: FOLVITE 1 MG PO (08:37)
[2025-02-09] MEDS: THIAMINE INJECTION 200 MG IV ×2 (08:37→20:37)
[2025-02-09] MEDS: NEUTRA-PHOS POWDER PACKET 250 MG PO ×2 (10:32→20:37)
--- NOTE | 2025-02-09 10:33 | CM ---
Reviewed the chart notes and spoke with the patient at the bedside. The patient is admitted under observational status. The observational letter was provided and explained. The patient had no questions with regards to the letter.
The patient resides with her spouse in a two story home with seven steps to enter. The patient has a rollator, cane, and shower chair she does not use. The patient reports no VN/SNF in the past. The patient confirmed pharmacy of choice is [facility] for speciality medications through mail. CM consult for substance abuse received. Discussed with the patient. CM provided [facility] information to the patient. CM continues to be available to patient/family and
is monitoring medical plan for needs at discharge.
Plan: Discharge to home when medically stable. No additional needs anticipated at this time.
--- NOTE | 2025-02-09 12:35 | W.PN.HOSP.TC ---
Today's Communication/Plan
-
Repeat urine cultures
Ambulate
If better will discharge home tomorrow
Assessment / Plan
Assessment / Plan
59 y/o female for evaluation of tremors. Patient started feeling tremulous and shaky on Saturday. Patient stated that she had a GI bug on Saturday and she was recovering and felt very weak. She states that her symptoms are much better now no more
tremors.
Head CT-no acute intracranial abnormality.
EKG-sinus rhythm
Cardiovascular system S1-S2 appreciated
Chest clear to auscultation
Abdomen soft and nontender
Lower extremity-no edema
Good strength bilateral proximal lower extremity
# Ambulatory dysfunction/tremors-likely secondary to recent GI illness, electrolyte abnormality, improved per patient.
# UTI-urine culture mixed bacteria. Repeat culture
Continue ceftriaxone for now
# Hypomagnesemia-replaced
# Hypophosphatemia-replace
# Multiple sclerosis-continue Zeposia. Patient brought it from home
She has an appointment coming up on February 16 with [facility] neurology office. Nelda does not see the need for inpatient neurology as she does not have any symptoms at present.
# Mildly elevated AST-likely secondary to alcohol.
# COPD-as needed nebs
# Daily alcohol use-2 ounce of whiskey every night. Continue thiamine. Watch for any withdrawal symptoms ( MSAS Score ordered)
# Osteoporosis
# Ex-smoker
# DVT prophylaxis-Lovenox
# Full code
Part of this note was created using voice recognition system. Occasional wrong word or��sound alike� substitutions may have inadvertently occurred due to the inherent limitations of voice recognition software. If noted kindly bring it to my
attention for correction.
Anticipated Discharge: Within 24 hours
Subjective/Interval History
-
Date of Service: February 09, 2025
Objective Data
-
Labs:
Laboratory Results
02/09/25
05:25
WBC 3.5 L
Hgb 15.0
Hct 43.7
Plt Count 169
Sodium 135
Potassium 3.6
Chloride 103
Carbon Dioxide 25
BUN 4 L
Creatinine 0.4 L
Glucose 119 H
Calcium 9.2
Vital Signs:
Vital Signs
Temp Pulse Resp BP Pulse Ox
99.2 F 83 18 151/85 95
02/09/25 11:40 02/09/25 11:40 02/09/25 11:40 02/09/25 11:40 02/09/25 11:40
I&O
02/08/25 02/09/25 02/10/25
06:59 06:59 06:59
Intake Total 240 / 240
Balance 240 / 240
[2025-02-09] MEDS: STERILE WATER FOR INJECTION 10 ML IV (15:45)
[2025-02-09] MEDS: ROCEPHIN 1000 MG IV (15:45)
[2025-02-09] MEDS: FLUSH (NSS) 2 FLUSH IV (15:46)
[2025-02-09] MEDS: TYLENOL 650 MG PO ×2 (16:09→21:48)
[2025-02-09] MEDS: LOVENOX 40 MG SC (17:36)
[2025-02-09] MEDS: THERAGRAN 1 TABLET PO (17:36)
[2025-02-09] MEDS: VITAMIN D3 (cholecalciferol) 50 MCG PO (17:36)
[2025-02-09] MEDS: NON-FORMULARY ITEM 0.92 MG PO (17:37)
[2025-02-09] MEDS: MELATONIN 5 MG PO (21:48)
[2025-02-09] MEDS: BENADRYL 25 MG PO (21:48)
[2025-02-10 03:00] VITALS: BP 136/81
[2025-02-10] MEDS: TYLENOL 650 MG PO ×3 (06:11→22:04)
[2025-02-10 07:45] VITALS: BP 168/91
[2025-02-10] MEDS: THIAMINE INJECTION 200 MG IV ×2 (09:31→20:11)
[2025-02-10] MEDS: FOLVITE 1 MG PO (09:32)
--- NOTE | 2025-02-10 10:02 | CM ---
Reviewed the chart notes and spoke with the patient at the bedside. Patient anticipates being discharged tomorrow to home. Spouse will provide transportation home. CM continues to be available to patient/family and is monitoring medical plan for
needs at discharge.
Plan: Discharge to home when medically stable. No needs anticipated.
--- NOTE | 2025-02-10 11:13 | W.PN.HOSP.TC ---
Addendum entered and electronically signed by Kaylen Cantrell MD 02/10/25 11:35:
Blood pressure has been elevated even when she was here in September. Patient states that she monitors blood pressure at home and it is always 130s over 70s. It is only elevated in the hospital setting on doctor's office. She wants to watch and
monitor it at home and talk to PCP to get started on something. She does not want to start any antihypertensives now.
Original Note:
Today's Communication/Plan
-
Await CX
Discharge home tomorrow
Assessment / Plan
Assessment / Plan
59 y/o female for evaluation of tremors. Patient started feeling tremulous and shaky on Saturday. Patient stated that she had a GI bug on Saturday and she was recovering and felt very weak. She states that her symptoms are much better now no more
tremors.
Head CT-no acute intracranial abnormality.
EKG-sinus rhythm
Cardiovascular system S1-S2 appreciated
Chest clear to auscultation
Abdomen soft and nontender
Lower extremity-no edema
Good strength bilateral proximal lower extremity
# Ambulatory dysfunction/tremors-likely secondary to recent GI illness, electrolyte abnormality, improved per patient.
# UTI-urine culture mixed bacteria. Repeat culture pending.
Continue ceftriaxone for now
# Hypomagnesemia-replaced
# Hypophosphatemia-replaced
# Multiple sclerosis-continue Zeposia -She has an appointment coming up on February 16 with [facility] neurology office. Nelda does not see the need for inpatient neurology as she does not have any symptoms at present.
# Mildly elevated AST-likely secondary to alcohol.
# COPD-as needed nebs
# Daily alcohol use-2 ounce of whiskey every night. Continue thiamine. Watch for any withdrawal symptoms ( MSAS Score ordered)
# Osteoporosis
# Ex-smoker
# DVT prophylaxis-Lovenox
# Full code
D/W RN
Part of this note was created using voice recognition system. Occasional wrong word or��sound alike� substitutions may have inadvertently occurred due to the inherent limitations of voice recognition software. If noted kindly bring it to my
attention for correction.
Anticipated Discharge: Within 24 hours
Subjective/Interval History
-
Date of Service: February 10, 2025
Objective Data
-
Vital Signs:
Vital Signs
Temp Pulse Resp BP Pulse Ox
98.3 F 74 16 168/91 97
02/10/25 07:45 02/10/25 07:45 02/10/25 07:45 02/10/25 07:45 02/10/25 07:45
I&O
02/09/25 02/10/25 02/11/25
06:59 06:59 06:59
Intake Total 240 / 240 480 / 480
Balance 240 / 240 480 / 480
[2025-02-10 11:20] VITALS: BP 145/92
[2025-02-10 15:35] VITALS: BP 139/83
[2025-02-10] MEDS: STERILE WATER FOR INJECTION 10 ML IV (17:00)
[2025-02-10] MEDS: ROCEPHIN 1000 MG IV (17:00)
[2025-02-10] MEDS: LOVENOX 40 MG SC (17:00)
[2025-02-10] MEDS: NON-FORMULARY ITEM 0.92 MG PO (17:09)
[2025-02-10] MEDS: THERAGRAN 1 TABLET PO (17:11)
[2025-02-10] MEDS: VITAMIN D3 (cholecalciferol) 50 MCG PO (17:11)
[2025-02-10] MEDS: MYCOSTATIN ORAL SUSPENSION 5 ML PO ×2 (18:44→21:56)
[2025-02-10 19:26] VITALS: BP 166/88
[2025-02-10] MEDS: MELATONIN 5 MG PO (21:51)
[2025-02-10] MEDS: BENADRYL 25 MG PO (21:56)
[2025-02-10 23:26] VITALS: BP 139/83
[2025-02-11 03:01] VITALS: BP 137/90
[2025-02-11 07:45] VITALS: BP 160/81
[2025-02-11] MEDS: MYCOSTATIN ORAL SUSPENSION 5 ML PO ×2 (08:40→13:05)
[2025-02-11] MEDS: FOLVITE 1 MG PO (08:40)
[2025-02-11] MEDS: THIAMINE INJECTION 200 MG IV (08:41)
--- NOTE | 2025-02-11 09:55 | W.PN.HOSP.TC ---
Addendum entered and electronically signed by Kaylen Cantrell MD 02/11/25 10:00:
Dictation- [id number]
Original Note:
Today's Communication/Plan
-
Discharge home
Assessment / Plan
Assessment / Plan
59 y/o female for evaluation of tremors. Patient started feeling tremulous and shaky on Saturday. Patient stated that she had a GI bug on Saturday and she was recovering and felt very weak. She states that her symptoms are much better now no more
tremors.
Head CT-no acute intracranial abnormality.
EKG-sinus rhythm
Cardiovascular system S1-S2 appreciated
Chest clear to auscultation
Abdomen soft and nontender
Lower extremity-no edema
Good strength bilateral proximal lower extremity
Patient feels great today and 'ready to go home'.
# Ambulatory dysfunction/tremors-likely secondary to recent GI illness, electrolyte abnormality, improved per patient.
# UTI-rule out urine culture mixed bacteria. Repeat culture neg.
DC ceftriaxone
# Hypomagnesemia-replaced
# Hypophosphatemia-replaced
# Multiple sclerosis-continue Zeposia -She has an appointment coming up on February 16 with [facility] neurology office. Nelda does not see the need for inpatient neurology as she does not have any symptoms at present.
# Mildly elevated AST-likely secondary to alcohol.NO RUQ pain or tenderness.
# COPD-as needed nebs
# Daily alcohol use-2 ounce of whiskey every night. Continue thiamine. Watch for any withdrawal symptoms ( MSAS Score ordered)
# Osteoporosis
# Ex-smoker
# DVT prophylaxis-Lovenox
# Full code
D/W RN
Part of this note was created using voice recognition system. Occasional wrong word or��sound alike� substitutions may have inadvertently occurred due to the inherent limitations of voice recognition software. If noted kindly bring it to my
attention for correction.
Anticipated Discharge: Today
Subjective/Interval History
-
Date of Service: February 11, 2025
Objective Data
-
Vital Signs:
Vital Signs
Temp Pulse Resp BP Pulse Ox
98.2 F 76 18 160/81 100
02/11/25 07:45 02/11/25 07:45 02/11/25 07:45 02/11/25 07:45 02/11/25 07:45
I&O
02/10/25 02/11/25 02/12/25
06:59 06:59 06:59
Intake Total 240 / 240 720 / 720
Balance 240 / 240 720 / 720
--- NOTE | 2025-02-11 09:57 | CM ---
Reviewed the chart notes. Anticipated discharge today to home. Spouse will provide transportation. CM continues to be available to patient/family and is monitoring medical plan for needs at discharge.
Plan: Discharge to home when medically stable. No needs anticipated at this time.
--- NOTE | 2025-02-11 09:57 | W.DS.TRANS ---
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
-
Discharge Instructions:
Discharge Diagnosis/Procedures Tremors, weakness due to Recent GI illness
Hypomagnesemia
Hypophosphatemia
Multiple sclerosis
COPD
Diet As tolerated
Activity As tolerated
Driving Restrictions As prior to admission
Instructions:
Stand-Alone Forms:
Changes to Home Medications: Yes
Discharge Medications:
DC Medications w/original date entered in [employer]
multivitamin 1 tab PO HS Supplement 11/19/23
cholecalciferol (vitamin D3) 50 mcg (2,000 unit) tablet 50 mcg PO HS Supplement 11/20/23
cyanocobalamin (vitamin B-12) 2,000 mcg tablet 2,000 mcg PO HS 02/08/25
ozanimod 0.92 mg capsule (Zeposia) 0.92 mg PO HS ms #0 caps 02/10/25
thiamine mononitrate (vit B1) 100 mg tablet 100 mg PO DAILY Supplement #30 tabs 02/10/25
Home Medication Changes
Thiamine is new
Imodium discontinued
Pending Results: No
[2025-02-11 11:20] VITALS: BP 134/78
--- NOTE | 2025-02-11 11:20 | W.DS.TRANS ---
Addendum entered and electronically signed by Kaylen Cantrell MD 02/11/25 14:59:
Dictation- [id number]
Original Note:
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
-
Discharge Instructions:
Discharge Diagnosis/Procedures Tremors, weakness due to Recent GI illness
Hypomagnesemia
Hypophosphatemia
Multiple sclerosis
COPD
Diet As tolerated
Activity As tolerated
Driving Restrictions As prior to admission
Instructions:
Stand-Alone Forms:
Changes to Home Medications: Yes
Discharge Medications:
DC Medications w/original date entered in [employer]
multivitamin 1 tab PO HS Supplement 11/19/23
cholecalciferol (vitamin D3) 50 mcg (2,000 unit) tablet 50 mcg PO HS Supplement 11/20/23
cyanocobalamin (vitamin B-12) 2,000 mcg tablet 2,000 mcg PO HS 02/08/25
ozanimod 0.92 mg capsule (Zeposia) 0.92 mg PO HS ms #0 caps 02/10/25
thiamine mononitrate (vit B1) 100 mg tablet 100 mg PO DAILY Supplement #30 tabs 02/10/25
nystatin 100,000 unit/mL oral suspension 5 ml PO QID thrush #60 mL 02/11/25
Home Medication Changes
Nystatin and thiamine are new
Pending Results: No
[2025-02-11 15:10] VITALS: BP 151/90
== END 2025-02-11 16:01 | disposition home or self-care (01) ==
LOC: 2 SOUTH 17:24
PROVIDERS: Nurse Practitioner Family; Physician Assistant; ADMITTING PHYSICIAN Internal Medicine; ATTENDING PHYSICIAN Hospitalist; EMERGENCY PHYSICIAN Student in an Organized Health Care Education/Training Program; FAMILY PHYSICIAN Nurse Practitioner Adult Health
DX: K52.9 Noninfective gastroenteritis and colitis, unspecified (principal); R53.1 Weakness; R25.1 Tremor, unspecified; G35 Multiple sclerosis; J43.9 Emphysema, unspecified; F10.20 Alcohol dependence, uncomplicated; N39.0 Urinary tract infection, site not specified; E83.42 Hypomagnesemia; F17.200 Nicotine dependence, unspecified, uncomplicated; B37.0 Candidal stomatitis; N39.3 Stress incontinence (female) (male); R39.15 Urgency of urination; I67.82 Cerebral ischemia; E83.39 Other disorders of phosphorus metabolism; R74.01 Elevation of levels of liver transaminase levels; M81.0 Age-related osteoporosis without current pathological fracture
CPT/HCPCS: 70450; 80048; 80053; 81003; 81015; 82010; 82077; 82977; 83735; 84100; 84443; 84484; 85025; 85027; 85610; 85730; 87086; 93005; 96361; 96365; 96375; 97162; 99285; G0378

== ENCOUNTER → 2025-04-17 07:20 | Outpatient (REF) | payer BC, SELFPAY ==
[2025-04-17 08:23] LABS: Hematocrit 39.1 % (37.0-47.0); Hemoglobin 13.4 g/dL (12.0-16.0); Mean Corp Hgb Conc. 34.3 g/dL (33.0-37.0); Mean Corpuscular Volume 101.0 fL (81.0-99.0); Nucleated Red Blood Cells % 0 %; Platelet Count 168 10^3/uL (130-400); Red Cell Dist. Width 13.2 % (11.5-14.5)
[2025-04-17 09:04] LABS: ALT (SGPT) 25 U/L (0-35); AST (SGOT) 42 U/L (14-36); Albumin 4.6 g/dl (3.5-5.0); Alkaline Phosphatase 80 U/L (38-126); Blood Urea Nitrogen 12 mg/dl (7-17); Calcium 9.4 mg/dl (8.4-10.2); Carbon Dioxide 26 mmol/L (22-30); Chloride 108 mmol/L (98-107); Glucose 93 mg/dl (70-99); Potassium 3.6 mmol/L (3.5-5.1); Sodium 144 mmol/L (135-145); Total Protein 7.1 g/dl (6.3-8.2); Very Low Density Lipoprotein 16 mg/dl (0-30); eGFR > 60.00
[2025-04-17 09:15] LABS: HDL Cholesterol 152 mg/dl; LDL Cholesterol, Calculated 66 mg/dl
== END ==
LOC: REG 07:20
PROVIDERS: ATTENDING PHYSICIAN Nurse Practitioner Adult Health
DX: Z00.00 Encounter for general adult medical examination without abnormal findings (principal)
CPT/HCPCS: 36415; 80053; 80061; 84443; 85025

== ENCOUNTER 2025-06-03 18:57 | Inpatient (IN) | payer BC, SELFPAY ==
[2025-06-03] VITALS (8 sets, daily range): BP systolic 149–175; BP diastolic 80–105; BMI 18.1; BMI 17.7
[2025-06-03] MEDS: VALIUM INJECTION 2 MG IV (16:30)
[2025-06-03] MEDS: NSS 1000 IV (16:32)
[2025-06-03 16:39] LABS: Hematocrit 38.1 % (37.0-47.0); Hemoglobin 13.6 g/dL (12.0-16.0); Mean Corp Hgb Conc. 35.7 g/dL (33.0-37.0); Mean Corpuscular Volume 96.5 fL (81.0-99.0); Nucleated Red Blood Cells % 0 %; Platelet Count 111 10^3/uL (130-400); Red Cell Dist. Width 12.2 % (11.5-14.5)
--- NOTE | 2025-06-03 16:55 | ED.GENMED ---
History of Present Illness
General
Chief Complaint: Anxiety
Source: patient
Exam Limitations: none
Time Seen by Provider: 06/03/25 15:49
Nursing documentation reviewed up to this point in time: agreed with
History of Present Illness
History of Present Illness:
Patient with history of chronic alcoholism, presents ED requesting alcohol detox/rehab, as she has had trouble stopping drinking alcohol for the past 1 month, with poor dietary intake. Patient denies suicidal or homicidal ideation. However,
patient does expressed feeling of depression, secondary to ongoing symptoms secondary to multiple sclerosis. Denies fever or chills. Denies coughing. Denies vomiting or diarrhea. Patient does report feeling tremulous, which she has experienced
in the past with alcohol withdrawal.
Review of Systems
Review of Systems
Allergies reviewed?: Yes
All Other Systems: ROS reviewed and negative except as documented in HPI and ROS
Constitutional: Reports no symptoms
Respiratory: Reports no symptoms
Cardiac: Reports no symptoms
ABD/GI: Reports no symptoms; Denies vomiting
Musculoskeletal: Reports no symptoms
Skin: Reports no symptoms
Neurological: Reports other (Tremor)
Psychiatric: Reports depression; Denies suicidal
Phy Exam
Physical Exam
Physical Exam:
Physical Exam
General: mild distress, not acutely ill. afebrile
Head: nc/at. eomi
Neck: supple. normal range of motion.
Heart: s1/s2 regular rate and rhythm
Lungs: no acute respiratory distress. clear bilaterally
Abdomen: normal bowel sounds. not tender.
Neuro: alert and oriented x 3. no focal neurological deficits
Skin: no rash
Psychiatric: well kept. interactive and cooperative
Extremities: no edema. no calf tenderness.
Course
Orders/Labs/Results
Orders:
Orders
06/03/25 16:10
Alcohol Urgent
Complete Blood Count/With Diff Urgent
Comprehensive Metabolic Panel Urgent
Magnesium Urgent
TSH Reflex To Free T4 Urgent
Comment: ADD ON
06/03/25 16:17
Add On- LAB Urgent
Tests Added?: alcohol, magnesium, TSH to reflex free T4
06/03/25 16:18
Crisis Consult Urgent
Reason for Consult: depression/alcohol abuse
0.9% Sodium Chloride 1000 ml [Nss] 1,000 ml IV BOLUS
diazePAM [Valium Injection] 2 mg IV NOW STA
06/03/25 16:19
Drug Screen, Urine [Urine Drug Abuse Screen] Urgent
06/03/25 17:31
Magnesium Sulfate 2 Gram/50 ml [Magnesium Sulfate] 2 gram in 50 ml IV NOW
06/03/25 17:33
Calcium Gluconate 1 gram/100mL [Calcium Gluconate] 1 gram in 100 ml IV ONCE
06/03/25 17:40
Potassium Chloride [KCl] 40 meq Dextrose 5%/Water 250 ml [D5w] 250 ml IV NOW
06/03/25 17:50
Electrocardiogram (*1) Urgent
Reason for Study: QTc Monitoring
EKG- Treatment ONCE
06/03/25 17:51
Dextrose 5%/Water 500 ml [D5w] 500 ml IV ONCE ONE
06/03/25 18:21
Urinalysis Urgent
MSAS SCORE As Directed
MSAS Score 0-4: Repeat MSAS every 2 hours until 0-4 for three consecutive assessments, then every 4 hours x 48
hours.
MSAS Score 5-7: For MILD withdrawl symptoms. Repeat MSAS and RASS every 2 hours
MSAS Score 8-11: For MODERATE withdrawal symptoms. Repeat MSAS and RASS every 1 hour. Consider ICU or IMU
level of care.
MSAS Score > 11: For SEVERE withdrawal symptoms. Repeat MSAS and RASS every 1 hour. Notify provider, consider
ICU level of care.
MSAS Additional Instructions: If no improvement or no decrease in score from severe to moderate within 12
hours, consult psychiatry
MSAS Notify Provider: Notify provider if patient requires more than 10 mg of Lorazepam in eight hour period.
06/03/25 18:22
Prothrombin Time Urgent
06/03/25 18:30
B-Hydroxybutyrate Urgent
GGTP Urgent
Phos [Phosphorus] Urgent
Protime/PTT Urgent
06/03/25 18:35
Admit/Transfer Patient As Directed
Co-Sign Provider:
Level of Care: Inpatient admission
Assign to:: Telemetry
Physician / Group: Logan Wells
Diagnosis: ETOH use disorder, hyponatremia, hypokalemia, hypocalcemia, hypomagnesemia,
Reason for Telemetry: Arrhythmia
Date to Stop Telemetry: 06/06/25
Time to Stop Telemetry: 11:00
Reason for Hospitalization: ETOH use disorder, hyponatremia, hypokalemia, hypocalcemia, hypomagnesemia,
transaminitis
Expected length of stay greater than two midnights?: Yes
ELOS- Estimated Length of Stay in days: 3
I certify the patient meets the requirements for IP care: Yes
PRN Pain Medication Management As Directed
May give lesser potent ordered pain med per pt: Yes
preference::
Protocol:: Medication orders for pain may be administered in a
manner that supports deferring to patient preference
when the pt is:
- Requesting an ordered lesser potent pain medication.
Least to most potent pain medications are defined
as: acetaminophen < NSAID < tramadol < opioids
(morphine, oxycodone, hydromorphone).
- Requesting a lesser dose of the same medication IF
ORDERED.
- Requesting a less intrusive route of administration
if both routes are prescribed by the provider (PO <
IV).
06/03/25 18:38
Code Status As Directed
Resuscitation Status: Full Code
06/03/25 19:00
0.9% Sodium Chloride 1000 ml [Nss] 1,000 ml Mvi, Adult [Multivitamin] 10 ml Thiamine Injection 100 mg IV 100 mls/hr
06/06/25 11:00
DC Protocol for Telemetry ONCE
Abnormal Lab Results
06/03/25 06/03/25 06/03/25
16:10 17:41 18:30
RBC 3.95 L 10^6/uL
(4.20-5.40)
MCH 34.4 H pg
(27.0-31.0)
Plt Count 111 L 10^3/uL
(130-400)
MPV 11.0 H fL
(7.4-10.4)
Absolute Lymphs (auto) 0.3 L 10^3/uL
(1.2-3.4)
Absolute Monos (auto) 1.0 H 10^3/uL
(0.1-0.6)
Immature Gran % 0.6 H %
(0-0.5)
Lymphocytes % 6.0 L %
(20.5-51.1)
Monocytes % 18.0 H %
(1.7-9.3)
PT 14.8 H Sec
(11.4-14.6)
Potassium 2.8 L mmol/L
(3.5-5.1)
Chloride 92 L mmol/L
(98-107)
Creatinine 0.4 L mg/dL
(0.6-1.0)
Glucose 65 L mg/dl
(70-99)
Calcium 7.3 L mg/dl
(8.4-10.2)
Magnesium 0.8 L* mg/dl
(1.6-2.3)
Total Bilirubin 2.0 H mg/dl
(0.2-1.3)
GGT 357 H U/L
(12-43)
AST 576 H* U/L
(14-36)
ALT 159 H U/L
(0-35)
Alkaline Phosphatase 142 H U/L
(38-126)
B-Hydroxybutyrate 7.38 H mmol/L
(0.02-0.27)
POC Glucose 66 L mg/dl
(70-99)
06/03/25 16:10
06/03/25 16:10
Vital Signs
Initial and Last Documented VS:
Initial Vital Signs
Temp Pulse Resp BP Pulse Ox
97.4 F 95 16 173/94 100
06/03/25 13:20 06/03/25 13:20 06/03/25 13:20 06/03/25 13:20 06/03/25 13:20
Last Documented Vital Signs
Temp Pulse Resp BP Pulse Ox
97.4 F 83 21 170/92 95
06/03/25 13:20 06/03/25 17:15 06/03/25 17:15 06/03/25 16:10 06/03/25 17:00
MDM/Problems Addressed
MDM/Problems Addressed:
Blood work reviewed, significant for severe electrolyte imbalance, likely secondary to dehydration, continue alcohol intake, along with poor oral intake. Patient will be admitted for electrolyte repletion and reassessment. Afterwards, patient will
require treatment for ongoing depression and alcohol dependence.
*Pulse Oximetry
SaO2: 96
Oxygen Mode of Delivery: Room air
Patient hypoxic: no
*EKG
Interpreted by ED Provider?: Yes
EKG Intrepretation Date: 06/03/25
Heart Rate: 94
Rhythm: sinus
[place]: normal axis
Interval: long QT
*Critical Care Note
Total Time (30-74mins, 75-104mins- exclusive of procedures): Not Applicable
ED Attending Note
-
Portions of this chart may have been created with voice recognition software.� Occasional wrong word or��sound alike� substitutions may have occurred due to the inherent limitations of voice recognition software.
Discharge Plan
Departure
Patient Disposition: Admit
Date of Disposition: 06/03/25
Time of Disposition: 17:49
Admit to: Telemetry
Presentation/result/management discussed w/ accepting MD/DO: Hospitalist
Discharge Problem:
Alcohol dependence, Depression, Electrolyte imbalance, Prolonged QT interval
Interventions
Interventions:
*Risk Screen - Suicide Last Done: 06/03/25 13:20
*General Assessment Last Done: 06/03/25 16:08
*Neglect/Abuse Screening Last Done: 06/03/25 13:20
*ED- Fall Risk Assessment Last Done: 06/03/25 16:08
ED-Psychological Assessment Last Done: 06/03/25 16:26
[2025-06-03 17:00] LABS: ALT (SGPT) 159 U/L (0-35); AST (SGOT) 576 U/L (14-36); Albumin 4.2 g/dl (3.5-5.0); Alkaline Phosphatase 142 U/L (38-126); Blood Urea Nitrogen 11 mg/dl (7-17); Calcium 7.3 mg/dl (8.4-10.2); Carbon Dioxide 24 mmol/L (22-30); Chloride 92 mmol/L (98-107); Estimated Creatinine Clearance 81 ml/min; Glucose 65 mg/dl (70-99); Magnesium 0.8 mg/dl (1.6-2.3); Potassium 2.8 mmol/L (3.5-5.1); Sodium 135 mmol/L (135-145); Total Protein 6.9 g/dl (6.3-8.2); eGFR > 60.00
[2025-06-03 17:43] LABS: Glucose - Point of Care 66 mg/dl (70-99)
--- NOTE | 2025-06-03 17:51 | HPS.HSE ---
Addendum entered and electronically signed by Logan Wells MD 06/03/25 18:47:
This is an addendum to the H&P written by Krupa Wilson on 06/03/2025. �Patient seen and examined independently with IMAGING AIDE.
60-year-old female past medical history of alcohol use disorder, multiple sclerosis, COPD presenting with requesting alcohol detoxification/rehab due to significant alcohol use in the past month. �Drinking 7-8 ounces per day. �Poor p.o. intake. �Has
been depressed without suicidal ideation. �No fevers or chills. �No cough or vomiting or diarrhea. �Feeling tremulous. �Last drink last night. �Been having vomiting within the past week now resolved.
Vital signs show blood pressure 170s.
Labs show potassium 2.8. �Magnesium 0.8. �Blood sugar 65. �Calcium 7.3. �Transaminitis of AST of 576, ALT 159. EKG shows Qtc 495.�
Patient with alcohol withdrawal and resulting electrolyte abnormalities including hypoglycemia, hypokalemia, hypomagnesemia and hypocalcemia. Qtc prolongation secondary to hypokalemia.�
IV fluids, alcohol withdrawal protocol, thiamine and folate. �Psychiatry consulted.
Original Note:
Family Physician
-
Family Physician: OSMAR Estrada
Chief Complaint
-
tremors
History of Present Illness
Patient is a 60-year-old female with past medical history significant for multiple sclerosis, COPD/emphysema, ETOH use disorder and chronic gait dysfunction require walker who presented to [facility] ED for evaluation of tremors. Patient reports she is
concerned for alcohol withdraw and is requesting help for detox/rehab. She reports feeling depressed for the last several months (denies any homicidal or suicidal ideation) and not wanting to get out of bed, to the point she has worked only 4 of her
last 12 shifts she was scheduled. She reports drinking 7-8 ounces of whiskey daily, with last drink being last night. By noon today she states she had tremors and generalized weakness where her knees buckled. Patient also reporting recent viral
infection within the last week causing approximately 24-hours of vomiting and has since resolved. Denies fever, chills, cough, shortness of breath, chest pain, nausea, vomiting, constipation or diarrhea.
Medical History
Past Medical History
Past Medical History: Reports Other
Additional Past Medical History:
multiple sclerosis
COPD/ emphysema
ETOH use disorder
chronic gait dysfunction require walker
Past Surgical History: Reports Other
Additional Past Surgical History:
multiple tooth extractions
Social History
Tobacco: Former Smoker (30 pack year history, quit approximately 4 years ago )
Alcohol: Daily (7-8 ounces whiskey daily )
Drug: Marijuana (medical marijuana gummies for insomnia nightly )
Personal:
Living: With Family
Employment: Employed
Family History
Family History: Not pertinent
Allergies / Home Medications
Allergies reflects when Allergies were last updated in [employer].
Home Medications with original date entered in [employer]
Allergy/Medication List:
Allergies
Allergy/AdvReac Type Severity Reaction Status Date / Time
No Known Allergies Allergy Verified 06/03/25 13:20
Home Medications
multivitamin 1 tab PO HS Supplement 11/19/23
cholecalciferol (vitamin D3) 50 mcg (2,000 unit) tablet 50 mcg PO HS Supplement 11/20/23
cyanocobalamin (vitamin B-12) 2,000 mcg tablet 2,000 mcg PO HS 02/08/25
ozanimod 0.92 mg capsule (Zeposia) 0.92 mg PO HS ms #0 caps 02/10/25
thiamine mononitrate (vit B1) 100 mg tablet 100 mg PO DAILY Supplement #30 tabs 02/10/25
Review of Systems
-
History Source: Patient
Constitutional: Denies Fever or Chills
EENT: Denies Sore Throat
Respiratory: Denies Cough, Hemoptysis or Trouble Breathing
Cardiac: Denies Chest Pain, Diaphoresis, Palpitations or Syncope
Abdomen/GI: Reports Anorexia (no appetite ); Denies Abdominal Pain, Nausea, Vomiting or Diarrhea
: Denies Dysuria, Frequency or Urgency
Musculoskeletal: Denies Joint Pain
Skin: Denies Rash
Neurological: Reports Weakness and Other (tremors ); Denies Dizzy, Headache or Numbness
Endocrine: Denies Polyuria
Psych: Denies Calm
Physical Exam
Vital Signs
Vital Signs
Temp Pulse Resp BP Pulse Ox
97.4 F 83 21 170/92 95
06/03/25 13:20 06/03/25 17:15 06/03/25 17:15 06/03/25 16:10 06/03/25 17:00
Physical Exam
General: Well Developed, No Apparent Distress, Comfortable and Conversant
HEENT: NormoCephalic, Moist mucous membranes, PERRLA, Nose Appears Normal and Ears Appear Normal
Respiratory: Clear and Non Labored Respirations; No Wheezes, Rales, Rhonchi or Crackles
Cardiac: S1/S2 and Regular Rhythm; No Murmur, Rub, Gallop or Peripheral Edema
GI: Soft, Non Tender, Non Distended and Normal Bowel Sounds
Musculoskeletal: No Clubbing, No Cyanosis and No Edema
Skin: Warm and IV/Catheter Site
Neuro: Awake, AO x 3 and Tremors
Psych: Calm and Depressed
Laboratory Results
-
06/03/25 16:10
06/03/25 16:10
Laboratory Results
Total Bilirubin 2.0 mg/dl (0.2-1.3) H 06/03/25 16:10
AST 576 U/L (14-36) H* 06/03/25 16:10
ALT 159 U/L (0-35) H 06/03/25 16:10
Alkaline Phosphatase 142 U/L (38-126) H 06/03/25 16:10
Data Reviewed
-
Lab Data: Labs Reviewed by me (K+ 2.8, Ca+ 7.3, Mag 0.8, tot bili 2.0, AST 576, ALT 159, Alk Phos 142)
Impression/Plan
-
IMPRESSION/PLAN:
#electrolyte imbalances 2/2 chronic ETOH abuse vs. viral gastritis with emesis vs. malnutrition
#ETOH use disorder
#transaminitis likely 2/2 ETOH use disorder
drinks 7-8 ounces of whiskey daily, last drink yesterday evening, tremors noted at noon toay
tot bili 2.0, AST 576, ALT 159, Alk Phos 142
EKG: NORMAL SINUS RHYTHM
NONSPECIFIC ST ABNORMALITY
QTcB >= 480 msec
- Admit to telemetry
- consult psych
- MSAS protocol
- EKG in AM to monitor QTc
- trend LFTs
#hyponatremia
#hypokalemia
#hypocalcemia
#hypomagnesemia
K+ 2.8, Ca+ 7.3, Mag 0.8
- replete electrolytes
- monitor CMP
#chronic gait dysfunction require walker
#generalized weakness
- consult PT
#multiple sclerosis
- continue Zeposia
#COPD/ emphysema
Code status: full code
DVT prophylaxis: Lovenox sq
[2025-06-03] MEDS: D5W 500 ML IV (17:52)
[2025-06-03] MEDS: CALCIUM GLUCONATE 100 IV (17:58)
[2025-06-03] MEDS: MAGNESIUM SULFATE 50 IV (18:00)
[2025-06-03] MEDS: MULTIVITAMIN 1011 ML IV (18:54)
[2025-06-03] MEDS: MULTIVITAMIN 1011 MG IV (18:54)
[2025-06-03 19:00] LABS: GGTP 357 U/L (12-43)
[2025-06-03 19:18] LABS: INR 1.11; PT 14.8 Sec (11.4-14.6)
[2025-06-03 19:19] LABS: APTT 28.2 Sec (23.4-35.0)
[2025-06-03] MEDS: VALIUM INJECTION 5 MG IV (20:01)
[2025-06-03] MEDS: THIAMINE INJECTION 200 MG IV (21:53)
[2025-06-03 23:02] LABS: Urine Character Clear (Clear)
[2025-06-03 23:10] LABS: Urine Red Blood Cell 0-2 /HPF (0-2); Urine Squamous Cell 0-2 /LPF (Few); Urine White Cell 0-2 /HPF (0-5)
[2025-06-04 03:16] VITALS: BP 156/83
--- NOTE | 2025-06-04 06:10 | PTCARENOTE ---
Pt arrived to unit from ED on stretcher at 2140, pt pulled over to bed d/t complaints of weakness. Pt at baseline has ambulatory dysfunction-uses a rolling walker. Pt reports drinking 7-8 oz of alcohol per day-MSAS per protocol. Pt with visible
tremors, no diaphoresis, AAOx3 and pleasant in conversation. See MSAS intervention-no medications at this time. VSS. QTC monitoring on tele-see Nursing Shift Assx. Bed in lowest position and locked, call santizo within reach, pt has no new concerns at
this time.
[2025-06-04 07:00] VITALS: BP 132/71
[2025-06-04 09:07] LABS: ALT (SGPT) 113 U/L (0-35); AST (SGOT) 267 U/L (14-36); Albumin 3.3 g/dl (3.5-5.0); Alkaline Phosphatase 109 U/L (38-126); Blood Urea Nitrogen 4 mg/dl (7-17); Calcium 6.5 mg/dl (8.4-10.2); Carbon Dioxide 28 mmol/L (22-30); Chloride 94 mmol/L (98-107); Estimated Creatinine Clearance 79 ml/min; Glucose 80 mg/dl (70-99); Magnesium 1.1 mg/dl (1.6-2.3); Potassium 2.4 mmol/L (3.5-5.1); Sodium 131 mmol/L (135-145); Total Protein 5.8 g/dl (6.3-8.2); eGFR > 60.00
[2025-06-04] MEDS: FOLVITE 1 MG PO (09:23)
[2025-06-04] MEDS: THIAMINE INJECTION 200 MG IV ×2 (09:23→20:37)
[2025-06-04 10:09] VITALS: BMI 17.7
[2025-06-04] MEDS: KCL 1034 MG IV ×2 (10:22→20:49)
[2025-06-04] MEDS: KCL 1034 MEQ IV ×2 (10:22→20:49)
[2025-06-04] MEDS: KCL 1034 GRAMS IV ×2 (10:22→20:49)
[2025-06-04] MEDS: THERAGRAN 1 TABLET PO (10:23)
[2025-06-04] MEDS: NON-FORMULARY ITEM PO (10:23)
--- NOTE | 2025-06-04 10:41 | W.PN.UPDATE ---
Update Note
Progress Note Update
patient seen chart reviewed. spoke with nursing patient admits 'i am alcoholic' she is interested in in patient rehab and has already talked to alfonso. so far tolerating wd. only needed one prn valium since admit. electrolyte imbalances being
corrected. in the past detoxes have been uneventual. acknowledges some depression not suicidal. 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 has ms which she says also plays a role. would consider antidep but need to correct
electrolye imbalance (serum sodium) continue as currently full note will follow shortly.
[2025-06-04 11:11] VITALS: BP 145/77
[2025-06-04] MEDS: IMODIUM 2 MG PO (11:43)
[2025-06-04] MEDS: PHENOBARBITAL 104 MG IV (11:45)
--- NOTE | 2025-06-04 11:58 | CON.MD ---
Addendum entered and electronically signed by Shawnee Aleman MD 06/04/25 14:09:
discussed with patient the importance of trying to understand relapse trigger and to actually plan for what to do when she is triggered. this is a goal of rehab. she also expressed that it saddens her to not be able to keep up with her grandkids bc
of ms. reminded her that there are many things she can do with the children that do not require running and jumping etc. quiet activities too have value to children.
Original Note:
Consultation - Medical
-
patient seen chart reviewed. discussed with nursing. this consult done today june 04 2025. patient is a 60 year old woman with a long hx of etoh use disorder. she has tried to stop drinking....indeed last january stopped and was sober until three
weeks ago. she is unclear what precipitated her relapse but she admits her multiple sclerosis gets her down sometimes despite on the other hand she feels she has weathered the dx relative well. she was dx at age 41 and has difficulties with fatigue,
ambulation and continence at times. she has considered that she is depressed and her pcp suggested antidep but she wanted to see if sobriety would help but she was unable to achieve sobriety. current consuming seven oz hard liquor three or four
times weekly. she has never had difficult with wd she said ie no sz or severe tremors etc. sleep is poor. sometimes drinks to sleep but realizes this is not a restorative sleep. appetite has been not great in recent past with some weight loss.
she does not enjoy much except for her four grandkids who ages seven on down who [place]. she has never been suicidal. nothing to suggest heri or psychosis. currently no psych meds
past psych hx see above
medical hx MS hx hld copd gait issues stress incontinence bp 156/83 p 82 qtc 495 cat brain done in i6.25 mild atrophy changes which may represent microvascular disease some electrolyte issues w NA 131 K 2.4 uine 3+ ketones FBS 65 CA 7.3
elevated lft's coming down now ast 267 qlt 113
substanc abuse see above never in rehab. never attended aa had some friend who use to help her w etoh abuse they were recovering. uses mj gummies occasionally
fh etoh ism (bro)
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
mse alert ox3 pleasant thoughtful and cooperative woman speech and thought process normal mood is dysphoric affect ok no si no psychosis aver intell insight judgment at this moment ok
dx dysphoria r/o major depression etoh use disorder mod severe
plan for now would not use antidep at this point. she is also hyponatremic currently and antidep would make that worse. agree totally with in pt rehab. she has already seen [facility] and is cooperating with this disposition. would continue w bzp as
ordered for wd . i think she would do okay with straight rehab. do not feel it has to be dual dx. she is NOt suicidal and no psychosis rehab can handle this level of dysphoria. if she perks up w sobriety may not need antidep but it should be
reassessed. will follow
--- NOTE | 2025-06-04 12:00 | CM ---
CM following re: discharge planning.
Reviewed pt's chart, met with pt.
Pt is a 60 year old female, admitted with primary dx of Electrolyte imbalances 2/2 chronic ETOH abuse vs. viral gastritis with emesis vs. malnutrition. ETOH use disorder. Transaminitis likely 2/2 ETOH use disorder
Pt reports she lives with and a son 2SH, 1 step to enter, has 2 supportive children. 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
Pt admitted to [facility] h/o alcohol abuse and she stated she decided to go to [facility] residential D&A rehab. pt stated she already met with [facility] and Tran and they are working on securing a bed at [facility] inpatient residential
D&A rehab.
[facility]
Pharmacy: [facility].
D/C plan: [facility] inpatient residential D&A rehab. [facility] following.
--- NOTE | 2025-06-04 13:20 | W.PN.HOSP.TC ---
Today's Communication/Plan
-
Phenobarbital taper
MSAS
IV fluids with electrolytes
Assessment / Plan
Assessment / Plan
Impression:
Alcohol withdrawal with impending delirium tremens
Hepatitis secondary to EtOH
Severe electrolyte abnormalities including:
� Hyponatremia
� Hypomagnesemia.
� Hypokalemia
Hypoalbuminemia
Mild to moderate protein calorie malnutrition with BMI of 17
Other conditions
Multiple sclerosis on [place]
Chronic ambulatory dysfunction.
COPD/emphysema
Plan:
Alcohol use disorder with alcohol withdrawal and concern for impending DT.
Initiated on MSAS with benzodiazepines remains with tremor and anxiety. Last alcohol administration about 72 hours prior to presentation
Given persistent symptoms initiate phenobarbital taper
Continue thiamine.
Replete electrolytes as below
Severe electrolyte abnormalities including hyponatremia, hypomagnesemia, hypokalemia being repleted.
Suspect hyponatremia secondary to low volume status pending urine osmolarity and urine sodium. Follow with repletion. TSH within normal limits at 1.43
Hypoalbuminemia, nutrition consult, consider supplements
Alcoholic hepatitis. Elevated LFTs mixed pattern.
Hepatitis discriminant function 15 with no indication for steroid therapy.
LFTs trending down with hydration.
Initiated on phenobarbital. Continue with caution monitoring daily liver function tests
Diarrhea, suspect part of the alcohol withdrawal. Denies abdominal pain.
Will treat with single dose of Imodium
Multiple sclerosis
Chronic ambulatory dysfunction.
Continue Zeposia
COPD/emphysema by history
Stable respiratory status with no complaints
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
Monitor
Case management consultation for disposition.
Patient considering inpatient alcohol rehab
Full code.
Anticipated Discharge: 24 - 48 hours
Subjective/Interval History
-
Date of Service: June 04, 2025
Objective Data
-
Labs:
Laboratory Results
06/04/25 06/04/25
07:58 16:00
Sodium 131 L Pending
Potassium 2.4 L* Pending
Chloride 94 L Pending
Carbon Dioxide 28 Pending
BUN 4 L Pending
Creatinine 0.4 L Pending
Glucose 80 Pending
Calcium 6.5 L* Pending
Total Bilirubin 1.9 H Pending
AST 267 H Pending
ALT 113 H Pending
Alkaline Phosphatase 109 Pending
Vital Signs:
Vital Signs
Temp Pulse Resp BP Pulse Ox
98.9 F 80 20 145/77 97
06/04/25 11:11 06/04/25 11:11 06/04/25 11:11 06/04/25 11:11 06/04/25 11:11
Physical Exam
-
General: Well Developed and No Apparent Distress
HEENT: Normocephalic, Atraumatic and Moist Mucous Membranes
Respiratory: Clear to Auscultation
Cardiac: Regular Rhythm and S1/S2; Negative Murmur, Rub or Gallop
GI: Soft, Nontender, Nondistended and Normal Bowel Sounds; Negative Organomegaly
Rectal: Deferred by Provider
Musculoskeletal: No Clubbing, No Cyanosis and No Edema
Skin: Negative Rash
Neuro: Nonfocal/Grossly Intact
[2025-06-04 15:00] VITALS: BP 134/65
[2025-06-04] MEDS: LOVENOX 40 MG SC (18:17)
[2025-06-04 19:46] VITALS: BP 137/72
[2025-06-04] MEDS: LUMINAL 97.2 MG PO (21:05)
[2025-06-04] MEDS: NON-FORMULARY ITEM 0.92 MG PO (21:06)
[2025-06-04 23:35] VITALS: BP 151/88
[2025-06-05] VITALS (7 sets, daily range): BP systolic 125–150; BP diastolic 71–78
[2025-06-05 07:07] LABS: Hematocrit 38.2 % (37.0-47.0); Hemoglobin 12.6 g/dL (12.0-16.0); Mean Corp Hgb Conc. 33.0 g/dL (33.0-37.0); Mean Corpuscular Volume 100.3 fL (81.0-99.0); Nucleated Red Blood Cells % 0 %; Platelet Count 98 10^3/uL (130-400); Red Cell Dist. Width 12.5 % (11.5-14.5)
[2025-06-05] MEDS: KCL 1034 MEQ IV (07:32)
[2025-06-05] MEDS: KCL 1034 GRAMS IV (07:32)
[2025-06-05] MEDS: KCL 1034 MG IV (07:32)
[2025-06-05 07:36] LABS: ALT (SGPT) 99 U/L (0-35); AST (SGOT) 204 U/L (14-36); Albumin 3.4 g/dl (3.5-5.0); Alkaline Phosphatase 113 U/L (38-126); Blood Urea Nitrogen < 2 mg/dl (7-17); Calcium 7.6 mg/dl (8.4-10.2); Carbon Dioxide 28 mmol/L (22-30); Chloride 105 mmol/L (98-107); Estimated Creatinine Clearance 79 ml/min; Glucose 107 mg/dl (70-99); Magnesium 2.1 mg/dl (1.6-2.3); Potassium 3.4 mmol/L (3.5-5.1); Sodium 136 mmol/L (135-145); Total Protein 6.1 g/dl (6.3-8.2); eGFR > 60.00
[2025-06-05] MEDS: FOLVITE 1 MG PO (07:47)
[2025-06-05] MEDS: THIAMINE INJECTION 200 MG IV ×2 (07:47→21:06)
[2025-06-05] MEDS: THERAGRAN 1 TABLET PO (07:47)
[2025-06-05] MEDS: LUMINAL 97.2 MG PO ×3 (07:48→21:06)
--- NOTE | 2025-06-05 10:59 | W.PN.HOSP.TC ---
Today's Communication/Plan
-
DC IV fluids
Replete electrolytes
Monitor labs
Continue alcohol withdrawal protocol
Assessment / Plan
Assessment / Plan
Gen-AAOx3, NAD, cachectic
HEENT-NC, AT, anicteric, clear oral mm
Neck-supple
CV-reg, no M, +S1/S2
Lungs-clear B/L
Abd-soft, NT, ND
Ext-no edema
Musculoskeletal-no cyanosis, clubbing
Skin-warm and dry
Neuro-grossly non-focal
Psych-calm, cooperative
Alcohol withdrawal with impending delirium tremens -clinically improving. Continue phenobarbital taper. Last dose of benzodiazepine was 06/03.
Acute alcohol induced hepatitis -improving. No indication for steroids.
Abdominal ultrasound pending.
Severe alcohol use disorder -plan to discharge to inpatient rehab.
Suspected protein/calorie malnutrition -unknown severity. Functional Architect to follow-up. Continue Ensure supplements.
Hyponatremia -improved.
Hypokalemia -starting to improve. Continue repletion.
Hypomagnesemia -improved.
Hypocalcemia -will start repletion.
Hypophosphatemia -2.3. Will replete.
Leukopenia/thrombocytopenia -likely due to alcohol abuse. Thrombocytopenia appears acute but leukopenia looks chronic. Will need outpatient follow-up. Hemoglobin is normal.
Mild to moderate protein calorie malnutrition with BMI of 17
Multiple sclerosis -on Zipisia
Chronic ambulatory dysfunction -uses a cane at home, rolling walker outside the home.
COPD/emphysema -without exacerbation.
Diarrhea, suspect part of the alcohol withdrawal. Denies abdominal pain.
Will treat with single dose of Imodium
Full code
Dispo -anticipate discharge to inpatient alcohol rehab, hopefully Saturday.
Anticipated Discharge: 24 - 48 hours
Subjective/Interval History
-
Date of Service: June 05, 2025
Patient seen and examined, feeling better, no complaints.
Objective Data
-
Labs:
Laboratory Results
06/04/25 06/05/25
22:24 06:38
WBC 3.1 L
Hgb 12.6
Hct 38.2
Plt Count 98 L
Sodium Cancelled 136
Potassium Cancelled 3.4 L D
Chloride Cancelled 105
Carbon Dioxide Cancelled 28
BUN Cancelled < 2 L
Creatinine Cancelled 0.3 L
Glucose Cancelled 107 H
Calcium Cancelled 7.6 L
Total Bilirubin Cancelled 1.7 H
AST Cancelled 204 H
ALT Cancelled 99 H
Alkaline Phosphatase Cancelled 113
Vital Signs:
Vital Signs
Temp Pulse Resp BP Pulse Ox
98.2 F 75 16 142/76 97
06/05/25 07:30 06/05/25 07:30 06/05/25 07:30 06/05/25 07:30 06/05/25 08:18
I&O
06/04/25 06/05/25 06/06/25
06:59 06:59 06:59
Intake Total 308 / 3085
Balance 3085 / 3085
Review of Systems
-
History Source: Patient
All other systems: Reviewed and negative
[2025-06-05 11:37] LABS: Folate 10.2 ng/ml (2.76-20); Vitamin B12 980 pg/ml (239-931)
[2025-06-05] MEDS: KCL 40 MEQ PO (11:38)
[2025-06-05] MEDS: OSCAL 500 + D 500 MG PO ×3 (11:38→21:07)
[2025-06-05] MEDS: SODIUM PHOSPHATE 255 MEQ IV (12:39)
--- NOTE | 2025-06-05 13:09 | W.PN.UPDATE ---
Update Note
Progress Note Update
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 Is currently on a phenobarbital taper. Seen in her room. Alert and oriented. No tremor.
Pleasant and appropriate. Has a good appetite; enjoyed an omelette today and looking forward to 's visit with lunch. Looking forward to shower today. Reports drinking 7 oz. of whiskey about 4 times a week which I suspect may be
under-estimate. Somewhat malnourished.
Today LFT's improving; some electrolyte disturbance. Vital signs all normal.
No signs or reports of hallucinations or delusions. Happy her son and his family have moved to the area. supportive.
She is planning to have residential alcohol treatment at [facility] with discharge hopefully in 2 days.
Psychiatry will follow. Assessment of depression most appropriate after completing detox.
[2025-06-05] MEDS: LOVENOX 40 MG SC (17:00)
[2025-06-05] MEDS: NON-FORMULARY ITEM 0.92 MG PO (21:06)
[2025-06-05] MEDS: KCL 20 MEQ PO (21:06)
[2025-06-06 03:06] VITALS: BP 140/80
[2025-06-06 07:30] VITALS: BP 135/75
[2025-06-06 08:30] LABS: ALT (SGPT) 78 U/L (0-35); AST (SGOT) 120 U/L (14-36); Albumin 3.1 g/dl (3.5-5.0); Alkaline Phosphatase 115 U/L (38-126); Blood Urea Nitrogen 6 mg/dl (7-17); Calcium 9.2 mg/dl (8.4-10.2); Carbon Dioxide 28 mmol/L (22-30); Chloride 104 mmol/L (98-107); Estimated Creatinine Clearance 79 ml/min; Glucose 133 mg/dl (70-99); Magnesium 1.2 mg/dl (1.6-2.3); Potassium 3.4 mmol/L (3.5-5.1); Sodium 135 mmol/L (135-145); Total Protein 5.6 g/dl (6.3-8.2); eGFR > 60.00
[2025-06-06] MEDS: THIAMINE INJECTION 200 MG IV (09:06)
[2025-06-06] MEDS: KCL 20 MEQ PO ×2 (09:06→20:10)
[2025-06-06] MEDS: FOLVITE 1 MG PO (09:07)
[2025-06-06] MEDS: THERAGRAN 1 TABLET PO (09:07)
[2025-06-06] MEDS: LUMINAL 97.2 MG PO ×2 (09:07→17:13)
[2025-06-06] MEDS: OSCAL 500 + D 500 MG PO ×3 (09:07→20:20)
[2025-06-06 09:29] LABS: Hematocrit 35.3 % (37.0-47.0); Hemoglobin 11.5 g/dL (12.0-16.0); Mean Corp Hgb Conc. 32.6 g/dL (33.0-37.0); Mean Corpuscular Volume 101.1 fL (81.0-99.0); Platelet Count 93 10^3/uL (130-400); Red Cell Dist. Width 12.6 % (11.5-14.5)
[2025-06-06 11:10] VITALS: BP 130/76
--- NOTE | 2025-06-06 11:54 | W.PN.UPDATE ---
Update Note
Progress Note Update
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 LFT's improving; liver U/S unremarkable.
She is alert and pleasant today. Did not sleep well, but had good nap this morning. Appetite very good. Has been walking with walker in the hallways. Sensorium clear. No tremors, no GI disturbance. Reports some fatigue which could be from
Phenobarb which will be lowered today per protocol. Good insight; motivated for treatment, some anxiety about not knowing what to expect at [facility].
I do not see a need for antidepressant treatment. This can be re-evaluated at rehab or as outpatient.
CBC anomalies related to MS treatment?
Psychiatry will follow.
[2025-06-06] MEDS: KCL 40 MEQ PO (12:27)
[2025-06-06] MEDS: MAGNESIUM SULFATE 100 IV (12:28)
--- NOTE | 2025-06-06 13:01 | W.PN.HOSP.TC ---
Today's Communication/Plan
-
Additional oral KCl
IV magnesium sulfate
Labs in the morning
Assessment / Plan
Assessment / Plan
Gen-AAOx3, NAD, cachectic
HEENT-NC, AT, anicteric, clear oral mm
Neck-supple
CV-reg, no M, +S1/S2
Lungs-clear B/L
Abd-soft, NT, ND
Ext-no edema
Musculoskeletal-no cyanosis, clubbing
Skin-warm and dry
Neuro-grossly non-focal
Psych-calm, cooperative
Alcohol withdrawal with impending delirium tremens -clinically improving. Continue phenobarbital taper. Last dose of benzodiazepine was 06/03.
Acute alcohol induced hepatitis -improving. LFTs improving. No indication for steroids.
Abdominal ultrasound completed, shows no evidence of cholelithiasis or biliary ductal dilation. Negative sonographic Rodriguez sign, mild nonspecific gallbladder wall thickening. Diffuse fatty liver noted.
Severe alcohol use disorder -plan to discharge to inpatient rehab.
Suspected protein/calorie malnutrition -unknown severity. Shake Feeder to follow-up. Continue Ensure supplements.
Hyponatremia -improved.
Hypokalemia -starting to improve. Continue repletion.
Hypomagnesemia -1.2 this morning. IV magnesium ordered. Recheck levels in the morning.
Hypocalcemia -improved.
Hypophosphatemia - improved.
Leukopenia/thrombocytopenia -likely due to alcohol abuse. Thrombocytopenia appears acute but leukopenia looks chronic. Will need outpatient follow-up. Hemoglobin is normal.
Mild to moderate protein calorie malnutrition with BMI of 17
Multiple sclerosis -on Zip[place]
Chronic ambulatory dysfunction -uses a cane at home, rolling walker outside the home.
COPD/emphysema -without exacerbation.
Diarrhea, suspect part of the alcohol withdrawal. Denies abdominal pain.
Will treat with single dose of Imodium
Full code
Dispo -anticipate discharge to inpatient alcohol rehab, hopefully Saturday, if electrolytes improved.
Anticipated Discharge: Within 24 hours
Subjective/Interval History
-
Date of Service: June 06, 2025
Patient seen and examined. No new complaints. Denies diarrhea.
Objective Data
-
Labs:
Laboratory Results
06/06/25
06:46
WBC 2.8 L
Hgb 11.5 L
Hct 35.3 L
Plt Count 93 L
Sodium 135
Potassium 3.4 L
Chloride 104
Carbon Dioxide 28
BUN 6 L
Creatinine 0.4 L
Glucose 133 H
Calcium 9.2 D
Total Bilirubin 1.1
AST 120 H
ALT 78 H
Alkaline Phosphatase 115
Vital Signs:
Vital Signs
Temp Pulse Resp BP Pulse Ox
99.0 F 74 16 130/76 97
06/06/25 11:10 06/06/25 11:10 06/06/25 11:10 06/06/25 11:10 06/06/25 11:10
I&O
06/05/25 06/06/25 06/07/25
06:59 06:59 06:59
Intake Total 3085 / 3085 1575 / 1575
Balance 3085 / 3085 1575 / 1575
Review of Systems
-
History Source: Patient
All other systems: Reviewed and negative
[2025-06-06 13:43] LABS: Absolute Neutrophils -Man Diff 2.0 10^3/uL (1.4-6.5); Normal RBC Morphology Yes; Platelets Checked Yes
[2025-06-06 13:44] LABS: Total Cells Counted 100
[2025-06-06 15:15] VITALS: BP 145/72
[2025-06-06] MEDS: LOVENOX 40 MG SC (17:13)
[2025-06-06 19:16] VITALS: BP 138/67
[2025-06-06] MEDS: VITAMIN B1 100 MG PO (20:10)
[2025-06-06] MEDS: NON-FORMULARY ITEM 1 MG PO (20:20)
[2025-06-06] MEDS: LUMINAL 64.8 MG PO (20:20)
[2025-06-06 23:16] VITALS: BP 132/88
[2025-06-07 03:11] VITALS: BP 133/77
[2025-06-07 07:00] VITALS: BP 153/80
[2025-06-07 08:15] LABS: Hematocrit 37.0 % (37.0-47.0); Hemoglobin 12.1 g/dL (12.0-16.0); Mean Corp Hgb Conc. 32.7 g/dL (33.0-37.0); Mean Corpuscular Volume 104.2 fL (81.0-99.0); Platelet Count 106 10^3/uL (130-400); Red Cell Dist. Width 12.7 % (11.5-14.5)
[2025-06-07 08:49] LABS: ALT (SGPT) 76 U/L (0-35); AST (SGOT) 102 U/L (14-36); Albumin 3.4 g/dl (3.5-5.0); Alkaline Phosphatase 121 U/L (38-126); Blood Urea Nitrogen 9 mg/dl (7-17); Calcium 9.3 mg/dl (8.4-10.2); Carbon Dioxide 25 mmol/L (22-30); Chloride 105 mmol/L (98-107); Estimated Creatinine Clearance 79 ml/min; Glucose 105 mg/dl (70-99); Magnesium 1.3 mg/dl (1.6-2.3); Potassium 5.0 mmol/L (3.5-5.1); Sodium 134 mmol/L (135-145); Total Protein 6.0 g/dl (6.3-8.2); eGFR > 60.00
[2025-06-07] MEDS: FOLVITE 1 MG PO (08:55)
[2025-06-07] MEDS: LUMINAL 64.8 MG PO ×3 (08:55→22:09)
[2025-06-07] MEDS: OSCAL 500 + D 500 MG PO ×3 (08:55→22:09)
[2025-06-07] MEDS: VITAMIN B1 100 MG PO ×2 (08:55→22:09)
[2025-06-07] MEDS: KCL 20 MEQ PO ×2 (08:55→22:10)
[2025-06-07] MEDS: THERAGRAN 1 TABLET PO (08:55)
[2025-06-07 09:43] LABS: Absolute Neutrophils -Man Diff 2.2 10^3/uL (1.4-6.5); Normal RBC Morphology Yes; Platelets Checked Yes; Total Cells Counted 100
[2025-06-07 11:08] VITALS: BP 138/82
--- NOTE | 2025-06-07 11:12 | W.PN.HOSP.TC ---
Today's Communication/Plan
-
Overall improved
Continue phenobarbital taper
Pending placement to ETOH rehab
Follow CMP in am
Assessment / Plan
Assessment / Plan
Impression:
Alcohol withdrawal with impending delirium tremens
Hepatitis secondary to EtOH
Severe electrolyte abnormalities including:
� Hyponatremia
� Hypomagnesemia.
� Hypokalemia
Hypoalbuminemia
Mild to moderate protein calorie malnutrition with BMI of 17
Other conditions
Multiple sclerosis on [place]
Chronic ambulatory dysfunction.
COPD/emphysema
Plan:
Alcohol withdrawal with impending delirium tremens -clinically improving. Continue phenobarbital taper. Last dose of benzodiazepine was 06/03.
Acute alcohol induced hepatitis -improving. LFTs improving. No indication for steroids.
Abdominal ultrasound completed, shows no evidence of cholelithiasis or biliary ductal dilation. Negative sonographic Rodriguez sign, mild nonspecific gallbladder wall thickening. Diffuse fatty liver noted.
Severe alcohol use disorder -plan to discharge to inpatient rehab.
Suspected protein/calorie malnutrition -unknown severity. Cash Applications Clerk to follow-up. Continue Ensure supplements.
Hyponatremia -improved.
Hypokalemia -starting to improve. Continue repletion.
Hypomagnesemia -1.2 this morning. IV magnesium ordered. Recheck levels in the morning.
Hypocalcemia -improved.
Hypophosphatemia - improved.
Leukopenia/thrombocytopenia -likely due to alcohol abuse. Thrombocytopenia appears acute but leukopenia looks chronic. Will need outpatient follow-up. Hemoglobin is normal.
Mild to moderate protein calorie malnutrition with BMI of 17
Multiple sclerosis -on [place]
Chronic ambulatory dysfunction -uses a cane at home, rolling walker outside the home.
COPD/emphysema -without exacerbation.
Diarrhea, suspect part of the alcohol withdrawal. Denies abdominal pain.
Full code
Dispo -anticipate discharge to inpatient alcohol rehab.
Anticipated Discharge: 24 - 48 hours
Subjective/Interval History
-
Date of Service: June 07, 2025
Objective Data
-
Labs:
Laboratory Results
06/07/25
07:01
WBC 3.3 L
Hgb 12.1
Hct 37.0
Plt Count 106 L
Sodium 134 L
Potassium 5.0 D
Chloride 105
Carbon Dioxide 25
BUN 9
Creatinine 0.4 L
Glucose 105 H
Calcium 9.3
Total Bilirubin 0.7
AST 102 H
ALT 76 H
Alkaline Phosphatase 121
Vital Signs:
Vital Signs
Temp Pulse Resp BP Pulse Ox
98 F 70 16 153/80 98
06/07/25 07:00 06/07/25 07:00 06/07/25 07:00 06/07/25 07:00 06/07/25 07:00
I&O
06/06/25 06/07/25 06/08/25
06:59 06:59 06:59
Intake Total 1575 / 1575 1260 / 1260
Balance 1575 / 1575 1260 / 1260
Physical Exam
-
General: Well Developed and No Apparent Distress
HEENT: Normocephalic, Atraumatic and Moist Mucous Membranes
Respiratory: Clear to Auscultation
Cardiac: Regular Rhythm and S1/S2; Negative Murmur, Rub or Gallop
GI: Soft, Nontender, Nondistended and Normal Bowel Sounds; Negative Organomegaly
Rectal: Deferred by Provider
Musculoskeletal: No Clubbing, No Cyanosis and No Edema
Skin: Negative Rash
Neuro: Nonfocal/Grossly Intact
--- NOTE | 2025-06-07 14:29 | CM ---
CM following re: discharge planning.
Reviewed pt's chart, met with pt.
Per DIXIE Velázquez, a bed at [facility] will be available on Saturday and pt will be accepted for admission to [facility] on Saturday06/09/25.
Pt lives with and a son 2SH, 1 step to enter, has 2 supportive children. 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
D/C plan: [facility] [place] inpatient residential D&A rehab on Saturday06/09/25. DIXIE Velázquez following.
[2025-06-07 15:00] VITALS: BP 150/79
--- NOTE | 2025-06-07 15:54 | W.PN.UPDATE ---
Update Note
Progress Note Update
pt seen for assessment. walked around unit with her, then spoke in private in her room. Had been looking forward to going to [facility] today, hopes tomorrow. Unclear why focused there, apparently based on [facility] assessment. I spoke with SW who
was [facility] about widening [facility] options for her. Looking forward to sobriety
[2025-06-07] MEDS: LOVENOX 40 MG SC (17:01)
[2025-06-07 19:21] VITALS: BP 118/53
[2025-06-07] MEDS: NON-FORMULARY ITEM 0.92 MG PO (22:09)
--- NOTE | 2025-06-07 22:52 | VATNOTE ---
called to restart pt due to previous IV left forearm, red, swollen, painful. Heat applied and IV removed. Restarted right forearm; VAT to follow; PCN informed.
[2025-06-07 23:23] VITALS: BP 122/63
[2025-06-08 03:33] VITALS: BP 126/70
[2025-06-08 07:15] VITALS: BP 122/65
[2025-06-08] MEDS: LUMINAL 64.8 MG PO ×2 (08:27→17:05)
[2025-06-08] MEDS: OSCAL 500 + D 500 MG PO ×3 (08:27→22:27)
[2025-06-08] MEDS: KCL 20 MEQ PO (08:27)
[2025-06-08] MEDS: VITAMIN B1 100 MG PO ×2 (08:28→22:27)
[2025-06-08] MEDS: THERAGRAN 1 TABLET PO (08:28)
[2025-06-08] MEDS: FOLVITE 1 MG PO (08:28)
[2025-06-08 09:12] LABS: Hematocrit 38.6 % (37.0-47.0); Hemoglobin 12.3 g/dL (12.0-16.0); Mean Corp Hgb Conc. 31.9 g/dL (33.0-37.0); Mean Corpuscular Volume 105.8 fL (81.0-99.0); Platelet Count 117 10^3/uL (130-400); Red Cell Dist. Width 12.8 % (11.5-14.5)
--- NOTE | 2025-06-08 09:54 | VATNOTE ---
Noted small red indurated area on left forearm from infiltrate on 06/07. Pt. reports 'it's a smidge less painful'.
[2025-06-08 10:05] LABS: Absolute Neutrophils -Man Diff 2.5 10^3/uL (1.4-6.5); Normal RBC Morphology Yes; Platelets Checked Yes; Total Cells Counted 100
[2025-06-08 10:56] LABS: Blood Urea Nitrogen 10 mg/dl (7-17); Calcium 9.9 mg/dl (8.4-10.2); Carbon Dioxide 26 mmol/L (22-30); Chloride 103 mmol/L (98-107); Estimated Creatinine Clearance 79 ml/min; Glucose 98 mg/dl (70-99); Potassium 5.3 mmol/L (3.5-5.1); Sodium 130 mmol/L (135-145); eGFR > 60.00
[2025-06-08 11:05] VITALS: BP 124/75
--- NOTE | 2025-06-08 11:48 | CM ---
CM following re: discharge planning.
Reviewed pt's chart, met with pt.
Per DIXIE Velázquez, a bed at [facility] is not available today, will be available possibly on Saturday . Requested pt's clinical faxed to [facility] at [phone].
Hoping, pt will be accepted for admission to [facility] inpatient residential D&A rehab tomorrow.
Pt lives with and a son 2SH, 1 step to enter, has 2 supportive children. 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
D/C plan: [facility] inpatient residential D&A rehab on Saturday06/09/25. DIXIE Velázquez following.
[2025-06-08 15:00] VITALS: BP 149/86
--- NOTE | 2025-06-08 15:49 | W.PN.HOSP.TC ---
Today's Communication/Plan
-
Aborted DT.
Improved electrolyte abnormalities.
Completed phenobarbital taper.
Pending placement to inpatient alcohol rehab matter of acceptance and bed availability.
Assessment / Plan
Assessment / Plan
Impression:
Alcohol withdrawal with impending delirium tremens
Hepatitis secondary to EtOH
Severe electrolyte abnormalities including:
� Hyponatremia
� Hypomagnesemia.
� Hypokalemia
Hypoalbuminemia
Mild to moderate protein calorie malnutrition with BMI of 17
Other conditions
Multiple sclerosis on [place]
Chronic ambulatory dysfunction.
COPD/emphysema
Plan:
Alcohol withdrawal with impending delirium tremens -clinically improving. Continue phenobarbital taper. Last dose of benzodiazepine was 06/03.
Acute alcohol induced hepatitis -improving. LFTs improving. No indication for steroids.
Abdominal ultrasound completed, shows no evidence of cholelithiasis or biliary ductal dilation. Negative sonographic Rodriguez sign, mild nonspecific gallbladder wall thickening. Diffuse fatty liver noted.
Severe alcohol use disorder -plan to discharge to inpatient rehab.
Suspected protein/calorie malnutrition -unknown severity. Plastic Tool Maker to follow-up. Continue Ensure supplements.
Hyponatremia -improved.
Hypokalemia -starting to improve. Continue repletion.
Hypomagnesemia -1.2 this morning. IV magnesium ordered. Recheck levels in the morning.
Hypocalcemia -improved.
Hypophosphatemia - improved.
Leukopenia/thrombocytopenia -likely due to alcohol abuse. Thrombocytopenia appears acute but leukopenia looks chronic. Will need outpatient follow-up. Hemoglobin is normal.
Mild to moderate protein calorie malnutrition with BMI of 17
Multiple sclerosis -on [place]
Chronic ambulatory dysfunction -uses a cane at home, rolling walker outside the home.
COPD/emphysema -without exacerbation.
Diarrhea, suspect part of the alcohol withdrawal. Denies abdominal pain.
Full code
Dispo -anticipate discharge to inpatient alcohol rehab.
Anticipated Discharge: 24 - 48 hours
Subjective/Interval History
-
Date of Service: June 08, 2025
Objective Data
-
Labs:
Laboratory Results
06/08/25
08:07
WBC 4.0 L
Hgb 12.3
Hct 38.6
Plt Count 117 L
Sodium 130 L
Potassium 5.3 H
Chloride 103
Carbon Dioxide 26
BUN 10
Creatinine 0.5 L
Glucose 98
Calcium 9.9
Vital Signs:
Vital Signs
Temp Pulse Resp BP Pulse Ox
99.4 F 86 16 149/86 96
06/08/25 15:00 06/08/25 15:00 06/08/25 15:00 06/08/25 15:00 06/08/25 15:00
I&O
06/07/25 06/08/25 06/09/25
06:59 06:59 06:59
Intake Total 1260 / 1260 1591 / 1591
Balance 1260 / 1260 1591 / 1591
Physical Exam
-
General: Well Developed and No Apparent Distress
HEENT: Normocephalic, Atraumatic and Moist Mucous Membranes
Respiratory: Clear to Auscultation
Cardiac: Regular Rhythm and S1/S2; Negative Murmur, Rub or Gallop
GI: Soft, Nontender, Nondistended and Normal Bowel Sounds; Negative Organomegaly
Rectal: Deferred by Provider
Musculoskeletal: No Clubbing, No Cyanosis and No Edema
Skin: Negative Rash
Neuro: Nonfocal/Grossly Intact
[2025-06-08] MEDS: LOVENOX SC (17:05)
[2025-06-08] MEDS: NON-FORMULARY ITEM 0.92 MG PO (22:28)
[2025-06-08 23:00] VITALS: BP 130/66
--- NOTE | 2025-06-09 02:17 | DOWNTIME ---
There was a [employer] Inpatient Services Director Downtime on 06/09/2025 from 0100 to 06/09/2025 at 0215. Downtime documentation of patient's care, including medication administrations, has been reconciled in the electronic record per guidelines. Refer to the
patient's paper chart under the miscellaneous tab to see printed paper medication records and downtime forms.
[2025-06-09 07:00] VITALS: BP 128/68
[2025-06-09] MEDS: OSCAL 500 + D 500 MG PO (08:53)
[2025-06-09] MEDS: FOLVITE 1 MG PO (08:53)
[2025-06-09] MEDS: THERAGRAN 1 TABLET PO (08:53)
[2025-06-09] MEDS: VITAMIN B1 100 MG PO (08:53)
--- NOTE | 2025-06-09 11:25 | VATNOTE ---
Patient with reported previous phlebitis to left forearm. Area red with minimal swelling, warm to touch, no drainage noted. Patient reports area painful when touched. Reports using warm compresses overnight; recommend continued warm compresses.
--- NOTE | 2025-06-09 11:41 | CM ---
CM following re: discharge planning.
Reviewed pt's chart, met with pt.
BCANARESH CRS Mariana left me a voice message late yesterday at 10:50 p.m. stating that [facility] is looking for to accept the pt and she is requested to send a referral to [facility]. Referral faxed.
CM spoke to [facility] quality assurance representative Manju with pt's present and Manju confirmed that pt is accepted for admission to [facility] inpatient residential D&A rehab today, pt will have deductible up to $850.00. Pt is aware, expressed her agreement. [facility]
quality assurance representative Manju stated she will arrange [employer] transport for pt with pickle solution maker time 2:00 p.m.
Pt will need to be brought to discharge pickle solution maker location by 2:00 p.m. and tanker truck driver will call when he is here.
D/C plan: [facility] inpatient residential D&A rehab. [facility] to provide transportation.
--- NOTE | 2025-06-09 12:34 | W.DS.TRANS ---
DC Summary - Automotive Instructor
-
Discharge Instructions:
Discharge Diagnosis/Procedures Impression:
Alcohol withdrawal with impending delirium
tremens
Hepatitis secondary to EtOH
Severe electrolyte abnormalities including:
� Hyponatremia
� Hypomagnesemia.
� Hypokalemia
Hypoalbuminemia
Mild to moderate protein calorie malnutrition
with BMI of 17
Other conditions
Multiple sclerosis on [place]
Chronic ambulatory dysfunction.
COPD/emphysema
Diet Regular
Instructions:
Stand-Alone Forms:
Changes to Home Medications: No
Discharge Medications:
DC Medications w/original date entered in [employer]
multivitamin 1 tab PO HS Supplement 11/19/23
cholecalciferol (vitamin D3) 50 mcg (2,000 unit) tablet 50 mcg PO HS Supplement 11/20/23
cyanocobalamin (vitamin B-12) 2,000 mcg tablet 2,000 mcg PO HS 02/08/25
ozanimod 0.92 mg capsule (Zeposia) 0.92 mg PO HS ms #0 caps 02/10/25
thiamine mononitrate (vit B1) 100 mg tablet 100 mg PO DAILY Supplement #30 tabs 02/10/25
Home Medication Changes
Pending Results: No
[2025-06-09] MEDS: FLUZONE (6 mos+) 2025-2026 FORMULA 0.5 ML IM (13:10)
[2025-06-09 15:17] VITALS: BP 162/92
== END 2025-06-09 15:30 | DRG 897 ==
LOC: 2 NORTH 18:57
PROVIDERS: Hospitalist; Nurse Practitioner Family; ADMITTING PHYSICIAN Hospitalist; ATTENDING PHYSICIAN Internal Medicine; EMERGENCY PHYSICIAN Emergency Medicine; FAMILY PHYSICIAN Nurse Practitioner Adult Health; OTHER PHYSICIAN Psychiatry & Neurology Psychiatry
DX: F10.231 Alcohol dependence with withdrawal delirium (principal); E87.1 Hypo-osmolality and hyponatremia; E44.0 Moderate protein-calorie malnutrition; Z68.1 Body mass index [BMI] 19.9 or less, adult; K70.10 Alcoholic hepatitis without ascites; E87.6 Hypokalemia; E83.42 Hypomagnesemia; E88.09 Other disorders of plasma-protein metabolism, not elsewhere classified; G35.D Multiple sclerosis, unspecified; J43.9 Emphysema, unspecified; F32.A Depression, unspecified; Z87.891 Personal history of nicotine dependence; E83.51 Hypocalcemia; D72.819 Decreased white blood cell count, unspecified; D69.59 Other secondary thrombocytopenia; F41.9 Anxiety disorder, unspecified
CPT/HCPCS: 76700; 80048; 80053; 80306; 80307; 81003; 81015; 82010; 82077; 82330; 82607; 82746; 82962; 82977; 83735; 83935; 84100; 84300; 84443; 85025; 85610; 85730; 90656; 93005; 96361; 96374; 96375; 97116; 97162; 99285; G0008